=== PATIENT | male | born 1955 | race Caucasian/White ===

== ENCOUNTER 2021-01-03 16:35 | Outpatient (CLI) | payer OTHER | END 2021-01-03 16:36 | disposition home or self-care (01) | LOC: COV 16:35 | PROVIDERS: ATTEND Family Medicine | DX: Z20.822 Contact with and (suspected) exposure to COVID-19 (principal) ==

== ENCOUNTER 2023-11-28 08:48 | Outpatient (CLI) | payer OTHER | END 2023-11-28 08:49 | disposition home or self-care (01) | LOC: LAB 08:48 | PROVIDERS: ATTEND Urology | DX: E34.9 Endocrine disorder, unspecified (principal) | CPT/HCPCS: 36415; 84403 ==

== ENCOUNTER 2023-12-04 14:17 | Outpatient (CLI) | payer OTHER | END 2023-12-04 14:18 | disposition home or self-care (01) | LOC: LAB 14:17 | PROVIDERS: ATTEND Urology | DX: R97.20 Elevated prostate specific antigen [PSA] (principal); E34.9 Endocrine disorder, unspecified | CPT/HCPCS: 36415; 84153; 84403 ==

== ENCOUNTER 2025-02-24 07:26 | Inpatient (IN) ==
--- NOTE | 2025-02-24 07:42 | ED Physician Documentation ---
PD HPI ABD PAIN Stated complaint Stated Complaint: FEVER Chief complaint Chief Complaint: Fever History obtained from History obtained from: Patient and Family (spouse) History of Present Illness Timing - onset: How many days ago (onset 2 days ago of dysuria, frequency and fevers. General malaise. No URI symptoms. ) Timing - duration: Days (2) Timing - details: Abrupt onset, Still present and Waxing and waning Quality: Cramping (lower abd; some to right flank but had been some since kidney stone surgery a week ago. ) Location: RLQ Radiation: Right flank Associated symptoms: Fever, Nausea and Diarrhea (last night after taking augmentin earlier in day.); No Constipation Recently seen: Clinic (talked with Dr. Berry and had UA and culture sent yesterday, started on Augmentin. Pt states nausea/vomiting/diarrhea started overnight, presume from abx. No abd pain per se. Fevers higher today. ) and Surgery (Cystoscopy with kidney stone removal and stent placement on 02/17/2025 with successful removal of the stone.) Meds/Allgy Home Medications Ambulatory Orders Medication Instructions Recorded Confirmed amlodipine 10 mg tablet 10 mg PO ONCE 02/20/2402/17 losartan 100 mg tablet 100 mg PO DAILY 02/20/2408/07 tamsulosin 0.4 mg capsule 0.4 mg PO BID 02/20/2402/17 omeprazole magnesium 20 mg 20 mg PO DAILY PRN indigest ion 08/12/24 02/17/25 tablet,delayed release (Prilosec OTC) phenazopyridine 200 mg tablet 200 mg PO TID PRN bladde r spasms 6 02/04/25 02/17/25 doses #9 tabs sildenafil 100 mg tablet 100 mg PO DAILY PRN sexual a ctivity 02/04/25 02/13/25 hydrocodone 5 mg-acetaminophen 325 1 tab PO Q4H PRN Pa in #10 tabs 02/07/25 02/17/25 mg tablet cephalexin 500 mg capsule 500 mg PO ONCE #1 cap hydrocodone 5 mg-acetaminophen 325 1 tab PO Q4H PRN Pa in #10 tabs 02/17/25 mg tablet phenazopyridine 200 mg tablet 200 mg PO TID PRN pain 9 doses #9 02/17/25 tabs Augmentin 875 mg-potassium 1 tab PO Q12H 14 days #28 t abs 02/23/25 clavulanate 125 mg tablet Allergies Allergies Allergy/AdvReac Type Severity Reaction Status Date / Time erythromycin base Allergy Severe Hives Verified 02/24/25 07:44 PFSH Active Problems All Active Problems (Updated 02/24/25 @ 09:35 by Ronnell Briscoe DO) Sepsis (Acute) S/P ureteral stent placement (Acute) Fever (Acute) Acute pyelonephritis due to bacteria (Acute) Right ureteral stone (Acute) Renal colic (Acute) Personal history of gout (Acute) Pain in joints of right hand (Acute) Dyspnea on exertion (Acute) Elevated blood pressure reading in office without diagnosis of hypertension (Acute) Reactive airway disease (Acute) Cough (Acute) Fracture of right foot (Acute) Right foot pain (Acute) Rib pain on right side (Acute) Chronic maxillary sinusitis (Acute) Chronic pansinusitis (Acute) Social History Social History Smoking Status: Former smoker Do you feel safe in your home environment?: Yes History of physical, verbal, emotional, or financial abuse?: No Frequency: Occasional Substance Use: denies use Exam Exam Vital Signs: Vital Signs x48h Temp Pulse Resp BP Pulse Ox 02/24/25 08:22 85 151/71 H 98 02/24/25 07:44 85 152/71 H 96 02/24/25 07:40 99.0 C H 94 20 151/78 H 93 Constitutional normal general appearance, distress noted (mild) (mainly feeling weak and nausea. Not much in pain. ) and average body habitus HENAL oral mucous membranes abnormal (dry) and oropharynx normal Neck/C-Spine supple and no meningeal signs Lymph no lymphadenopathy noted Respiratory breath sounds equal bilaterally, normal respiratory effort and clear to auscultation bilaterally Cardiovascular normal heart rate noted, regular rhythm noted and no murmur Gastrointestinal abdomen soft to palpation, tender to palpation (mild) and (suprapubic) and nontender to percussion Genitourinary no CVA tenderness Psychiatry mental status grossly normal, oriented x3 and thought process normal Skin skin color normal and no rash Results Vitals Vitals: Vital Signs - 24 hr 02/24/25 07:40 02/24/25 07:44 02/24/25 08:22 Temperature 99.0 C H Temperature Source Oral Pulse Rate 94 85 85 Respiratory Rate 20 Blood Pressure 151/78 H 152/71 H 151/71 H O2 Saturation 93 96 98 O2 Source Room air Room air Room air Pain Intensity 4 Oxygen O2 Source Room air Labs Labs: Laboratory Tests 02/24/25 02/24/25 08:00 08:06 WBC 14.1 H RBC 4.21 L Hgb 13.4 L Hct 37.9 L MCV 90.0 MCH 31.8 H MCHC 35.4 RDW 15.2 H Plt Count 200 MPV 10.0 Neut # (Auto) 11.7 H Lymph # (Auto) 0.7 L [place] # (Auto) 1.4 H Eos # (Auto) 0.2 Baso # (Auto) 0.1 Absolute Nucleated RBC 0.00 Nucleated RBC % 0.0 Sodium 134 L Potassium 3.4 L Chloride 98 L Carbon Dioxide 27 Anion Gap 9.0 BUN 13 Creatinine 1.2 Estimated GFR (MDRD) 60 L Glucose 144 H Lactic Acid 0.8 Calcium 8.9 Magnesium 1.5 L Total Bilirubin 3.1 H AST 12 ALT 15 Alkaline Phosphatase 56 Total Protein 6.9 Albumin 4.0 Globulin 2.9 Albumin/Globulin Ratio 1.4 Rads (name of study) AP CT: Relevant Findings:: Final report received and EMP independent interpretation of test (stent in place. No noted abscess/free fluid. some inflammation around kidney right.) Interpretation: EXAM: [id number] CT/ABPEW ([id number]) PROCEDURE: CT Abdomen/Pelvis W INDICATIONS: recent stent/cystoscopy/stone, fever 2 days CONTRAST: Omni 300 100mL TECHNIQUE: After the administration of intravenous contrast, a CT scan of the abdomen and pelvis was performed. Images were recorded and evaluated at appropriate window settings. Reformats: coronal and sagittal. For radiation dose reduction, the following was used: automated exposure control, adjustment of mA and/or kV according to patient size. COMPARISON: CT abdomen pelvis 02/04/2025 FINDINGS: Image quality: Diagnostic. Lower chest: Unremarkable. Liver: No solid mass. Liver is enlarged measuring 22.9 cm with diffuse steatosis. Simple hepatic cyst is present measuring 2.7 cm. Gallbladder: Removed. Biliary tree: No intrahepatic or extrahepatic dilation, accounting for age. Spleen: No splenomegaly. Pancreas: No pancreatic ductal dilation. Adrenals: No adrenal nodule. Kidneys and ureters: No hydronephrosis. No renal cystic lesion which requires follow up. No solid mass. Right ureterovesicular stent. Punctate nonobstructing left renal calcification. Minimal appearance of perinephric stranding on the right as well as periureteral stranding. Previous right ureteral stent is no longer visualized. Stomach, bowel and peritoneum: No gastric or small bowel dilation. No abnormal wall thickening. No pathologic free fluid. Minimal hiatal hernia. Scattered colonic diverticula without inflammatory change. Lymph nodes: No central or retroperitoneal adenopathy. Vessels: No infrarenal aortic aneurysm. Patent portal vein. PELVIS Reproductive organs: Prostate gland is enlarged. Bladder: No abnormal wall thickening. Pelvic lymph nodes: No pelvic adenopathy by size criteria. Bones: No aggressive osseous abnormality. Other: No significant ventral or inguinal hernia. IMPRESSION: Mild right perinephric and periureteral stranding with ureterovesicular stent. Previous ureteral stone is no longer visualized. No perinephric fluid collection. Diverticulosis. Reviewed by: Suzy Nix MD on 02/24/2025 9:07 AM [facility] chest xray: Relevant Findings:: Final report received and EMP independent interpretation of test (no infiltrates) Interpretation: EXAM: [id number] XR/CXR1VW ([id number]) PROCEDURE: XR Chest 1V INDICATIONS: Sepsis TECHNIQUE: One view of the chest was acquired. COMPARISON: Chest x-ray 08/12/2024 FINDINGS: Surgical changes and devices: None. Lungs and pleura: No pleural effusions or pneumothorax. No consolidation. Mediastinum: Mediastinal contours appear normal. Heart size is prominent. Bones and chest wall: No suspicious bony lesions. Overlying soft tissues appear unremarkable. IMPRESSION: No acute cardiopulmonary process. Reviewed by: Suzy Nix MD on 02/24/2025 8:56 AM [facility] PD Medical Decision Making ED course Complexity details: reviewed results, considered differential (Patient is 1 week status post kidney stone removal by cystoscopy and stent placement. Has 2 days of fever and chills and dysuria. Dr. Berry states he had a urine sample sent for culture yesterday and started the patient on Augmentin. The patient has some NVD overnight, ? from abx.) and d/w patient Reviewed Lab Results: White count is elevated but his lactate is normal. We did do blood cultures and will see if those show any bacteremia. Concern would be high possibility of bacteremia given the high fevers and waves over the last 2 days. Otherwise he does not have URI symptoms but we will obtain a nasal PCR. Chest x-ray was done to evaluate for pneumonic process and appeared normal. No skin rash or sores. He has some vomiting and diarrhea overnight but more likely related to illness or side effect of the Augmentin from yesterday as that was not present prior to that and was not present at the initiation of the fevers. Most likely urinary tract infection. Dr. Berry is come to the ER to talk with the patient and is planning a stent exchange after initial antibiotics. The hospitalist is contacted as well. Discharge Plan Discharge Patient Disposition: [facility] DC/Xfer Condition: Stable Clinical Impression: Acute pyelonephritis due to bacteria, Fever, S/P ureteral stent placement Prescriptions: No Action amoxicillin-pot clavulanate 875-125 mg tablet 1 tab PO Q12H 14 Days Qty: 28 0RF sildenafil 100 mg tablet 100 mg PO DAILY PRN (Reason: sexual activity) phenazopyridine 200 mg tablet 200 mg PO TID PRN (Reason: bladder spasms) Qty: 9 0RF hydrocodone-acetaminophen 5-325 mg tablet 1 tab PO Q4H PRN (Reason: Pain) Qty: 10 0RF phenazopyridine 200 mg tablet 200 mg PO TID PRN (Reason: pain) Qty: 9 0RF cephalexin 500 mg capsule 500 mg PO ONCE Qty: 1 0RF Rx Instructions: take one cap 1-2 hours before cystoscopy and stent removal in the office omeprazole magnesium [Prilosec OTC] 20 mg tablet,delayed release (DR/EC) 20 mg PO DAILY PRN (Reason: indigestion) hydrocodone-acetaminophen 5-325 mg tablet 1 tab PO Q4H PRN (Reason: Pain) Qty: 10 0RF losartan 100 mg tablet 100 mg PO DAILY Patient Comments: take 1 tablet by mouth once daily tamsulosin 0.4 mg capsule 0.4 mg PO BID Patient Comments: TAKE 1 CAPSULE DAILY amlodipine 10 mg tablet 10 mg PO ONCE Patient Comments: TAKE 1 TABLET DAILY Print Language: Algerian
--- OUTSIDE RECORDS SUMMARY | 2025-02-24 07:55 | EXTERNAL MEDICAL SUMMARY RPT | Continuity of Care Document ---
Author Organization [facility] Address [address] [place] [id number] Phone Allergies and Intolerances date description facility reaction severity 2024-08-12 10:00 [id number]^erythromy dagoberto base^^erythromycin base^^allergy.id [facility] Hives (no severity) 2024-12-26 10:00 [id number]^erythromy dagoberto base^^erythromycin base^^allergy.id [facility] Hives (no severity) 2025-02-04 10:00 [id number]^erythromy dagoberto base^^erythromycin base^^allergy.id [employer] (no severity) 2025-02-13 10:00 [id number]^erythromy dagoberto base^^erythromycin base^^allergy.id [facility] Hives (no severity) 2025-02-24 10:00 [id number]^erythromy dagoberto base^^erythromycin base^^allergy.id [employer] (no severity) Problems date description facility 2024-12-26 10:41 Pain in joints of right hand [facility] 2024-12-26 10:41 Personal history of other diseases of the musculoskeletal system and connective tissue [facility] 2025-02-02 13:47 Encounter for screening for car diovascular disorders [facility] 2025-02-04 11:14 Unspecified renal colic [facility] 2025-02-04 11:39 Unspecified renal colic [facility] 2025-02-04 12:21 Unspecified renal colic [facility] 2025-02-04 12:22 Unspecified renal colic [facility] 2025-02-04 13:41 Unspecified renal colic [facility] 2025-02-06 07:43 Unspecified renal colic [facility] 2025-02-06 08:31 Unspecified renal colic [facility] 2025-02-07 08:12 [facility] col[facility]25-[facility]-07 08:12 Right lower quadrant pain [facility] 2025-02-07 08:12 [facility]ausea [facility] 2025-02-07 08:13 Unspecified renal colic [facility] 2025-02-07 10:17 Benign prostatic hyp erplasia with lower urinary tract symptoms [facility] 2025-02-07 10:17 Nocturia [facility] 2025-02-07 10:17 Elevated prostate specific anti gen [PSA] [facility] 2025-02-07 13:52 Unspecified renal colic [facility] 2025-02-08 23:39 Calculus of ureter [facility] 2025-02-10 08:22 Calculus of ureter [facility] 2025-02-13 11:40 Calculus of ureter [facility] 2025-02-17 06:40 Calculus of ureter [facility] 2025-02-17 07:31 Calculus of ureter [facility] 2025-02-17 09:37 Calculus of ureter [facility] 2025-02-17 09:37 Unspecified renal colic [facility] 2025-02-17 10:10 Calculus of ureter [facility] 2025-02-17 10:10 Unspecified renal colic [facility] 2025-02-18 10:11 Unspecified renal colic [facility] 2025-02-18 10:11 Right lower quadrant pain [facility] 2025-02-18 10:11 [facility]ausea [facility] 2025-02-18 10:58 Unspecified renal colic [facility] 2025-02-18 10:58 Right lower quadrant pain [facility] 2025-02-18 10:58 Nausea [facility] Results/Labs test date facility value unit notes Result panel 1 UROBILINOGEN,URINE 2025-02-04 [facility] 0.2 (NORMAL) e.u./dl (missing) SPECIFIC GRAVITY,URINE 2025-02-04 [facility] 1.020 (missing) (missing) WBC,URINE 2025-02-04 [facility] 6-10 /hpf (missing) PH,URINE 2025-02-04 [facility] 6.0 ph (missing) MUCUS,URINE 2025-02-04 [facility] Few Strands (missing) (missing) CLARITY,URINE 2025-02-04 [facility] HAZY (missing) (missing) URINE MICROSCOPIC INDICATED? 2025-02-04 [facility] INDICATED (missing) (missing) OCCULT BLOOD,URINE 2025-02-04 [facility] LARGE (missing) (missing) LEUKOCYTE ESTERASE, URINE 2025-02-04 [facility] NEGATIVE (missing) (missing) NITRITE,URINE 2025-02-04 [facility] NEGATIVE (missing) (missing) BILIRUBIN,URINE 2025-02-04 [facility] NEGATIVE (missing) Bilirubin can be influenced by color interference. Please correlate positive results with clinical presentation GLUCOSE, URINE (UA) 2025-02-04 [facility] NEGATIVE mg/dl (missing) KETONES,URINE (UA) 2025-02-04 [facility] NEGATIVE mg/dl (missing) UR CULTURE IF IND 2025-02-04 [facility] NOT INDICATED (missing) (missing) SQUAMOUS EPITHELIAL CELL,UR 2025-02-04 [facility] RARE Squamous (missing) (missing) BACTERIA,URINE 2025-02-04 [facility] Rare /hpf (missing) RBC,URINE 2025-02-04 [facility] TNTC /hpf (missing) PROTEIN,URINE 2025-02-04 [facility] TRACE mg/dl (missing) COLOR,URINE 2025-02-04 [facility] YELLOW (missing) URINE RANDOM Result panel 2 LIPASE 2025-02-04 09:13 [facility] < 10 u/l As of September 2022 testing method has changed, this may include reference ranges. NUCLEATED RED BLOOD CELLS AUTO 2025-02-04 09:13 [facility] 0.0 /100wbc (missing) BASOPHILS # (AUTO) 2025-02-04 09:13 [facility] 0.0 10 3/ul (missing) NRBC ABSOLUTE COUNT (AUTO) 2025-02-04 09:13 [facility] 0.00 x10 3/ul (missing) EOSINOPHILS # (AUTO) 2025-02-04 09:13 [facility] 0.2 10 3/ul (missing) MONOCYTES # (AUTO) 2025-02-04 09:13 [facility] 0.9 10 3/ul (missing) CREATININE 2025-02-04 09:13 [facility] 1.2 mg/dl As of September 2022 testing method has changed, this may include reference ranges. LYMPHOCYTES # (AUTO) 2025-02-04 09:13 [facility] 1.3 10 3/ul (missing) ALBUMIN/GLOBULIN RATIO 2025-02-04 09:13 [facility] 1.5 (missing) (missing) BILIRUBIN,TOTAL 2025-02-04 09:13 [facility] 1.5 mg /dl As of September 2022 testing method has changed, this may include reference ranges. MEAN PLATELET VOLUME 2025-02-04 09:13 [facility] 10.1 fl (missing) CHLORIDE 2025-02-04 09:13 [facility] 102 mmol/l As of September 2022 testing method has changed, this may include reference ranges. GLUCOSE 2025-02-04 09:13 [facility] 131 mg/dl As of September 2022 testing method has changed, this may include reference ranges. SODIUM 2025-02-04 09:13 [facility] 137 mmol/l (missing) HGB - HEMOGLOBIN 2025-02-04 09:13 [facility] 14.4 g /dl (missing) BUN - BLOOD UREA NITROGEN 2025-02-04 09:13 [facility] 15 mg/dl As of Sep testing method has changed, this may include reference ranges. RED CELL DISTRIBUTION WIDTH 2025-02-04 09:13 [facility] 15.2 % (missing) AST ASPARTATE AMINOTRANSFERASE 2025-02-04 09:13 [facility] 19 iu/l As of September 2022 testing method has changed, this may include reference ranges. GLOBULIN 2025-02-04 09:13 [facility] 2.8 g/dl (missing) PLT - PLATELET COUNT 2025-02-04 09:13 [facility] 213 10 3/ul (missing) ALT ALANINE AMINOTRANSFERASE 2025-02-04 09:13 [facility] 24 iu/l As of September 2022 testing method has changed, this may include reference ranges. CARBON DIOXIDE - CO2 2025-02-04 09:13 [facility] 27 mmol/l As of September 2022 testing method has changed, this may include reference ranges. MEAN CORPUSCULAR HEMOGLOBIN 2025-02-04 09:13 [facility] 30.9 pg (missing) MEAN CORPUSCULAR HGB CONC 2025-02-04 09:13 [facility] 34.3 g/dl (missing) POTASSIUM 2025-02-04 09:13 [facility] 4.0 mmol/l As of September 2022 testing method has changed, this may include reference ranges. ALBUMIN 2025-02-04 09:13 [facility] 4.3 g/dl As of September 2022 testing method has changed, this may include reference ranges. RED BLOOD COUNT 2025-02-04 09:13 [facility] 4.66 10 6/ul (missing) HCT - HEMATOCRIT 2025-02-04 09:13 [facility] 42.0 % (missing) NEUTROPHILS # (AUTO) 2025-02-04 09:13 [facility] 5.4 10 3/ul (missing) GFR - MDRD 2025-02-04 09:13 [facility] 60 (porter g) The IDMS-traceable MDRD Study Equation has been validated extensively in and populations between the ages of 18 and 70 with impaired kidney function (eGFR < 60 mL/min/1.73m2) and has shown good performance for patients with all common causes of kidney disease. Although this equation has not been validated for patients older than 70, an MDRD-derived eGFR may still be a useful tool for providers caring for patients older than 70. References: http://www.nkdep. nih.gov/lab-evalu ation/gfr/creatin ine-stand ardization, last updated May 2011. ALKALINE PHOSPHATASE 2025-02-04 09:13 [facility] 61 iu/l As of September 2022 testing method has changed, this may include reference ranges. TOTAL PROTEIN 2025-02-04 09:13 [facility] 7.1 g/dl As of September 2022 testing method has changed, this may include reference ranges. WHITE BLOOD COUNT 2025-02-04 09:13 [facility] 7.9 x10 3/ul (missing) ANION GAP 2025-02-04 09:13 [facility] 8.0 (missing ) (missing) CALCIUM 2025-02-04 09:13 [facility] 9.6 mg/dl As of September 2022 testing method has changed, this may include reference ranges. MEAN CORPUSCULAR VOLUME 2025-02-04 09:13 [facility] 90.1 fl (missing) Social History date description facility
[2025-02-24] MEDS: SODIUM CHLORIDE 0.9% 1,000 ML IV STA (08:07)
[2025-02-24] MEDS: ONDANSETRON 4 MG/2 ML VIAL IVP STA (08:08)
[2025-02-24 08:16] LABS: HCT - HEMATOCRIT 37.9 % (42.0-52.0); HGB - HEMOGLOBIN 13.4 g/dL (14.0-18.0); MEAN PLATELET VOLUME 10.0 fL (7.4-11.4); NRBC ABSOLUTE COUNT (AUTO) 0.00 x10^3/uL; NUCLEATED RED BLOOD CELLS AUTO 0.0 /100WBC; PLT - PLATELET COUNT 200 10^3/uL (130-450); RED CELL DISTRIBUTION WIDTH 15.2 % (12.0-15.0)
[2025-02-24 08:26] LABS: ALT ALANINE AMINOTRANSFERASE 15.0 IU/L (10-60); AST ASPARTATE AMINOTRANSFERASE 12.0 IU/L (10-42); BUN - BLOOD UREA NITROGEN 13.0 mg/dL (6-20); CARBON DIOXIDE - CO2 27.0 mmol/L (21-32); CREATININE 1.2 mg/dL (0.6-1.3); GFR - MDRD 60.0 (>89)
--- NOTE | 2025-02-24 09:00 | XRAY Report ---
PROCEDURE: XR Chest 1V INDICATIONS: Sepsis TECHNIQUE: One view of the chest was acquired. COMPARISON: Chest x-ray 08/12/2024 FINDINGS: Surgical changes and devices: None. Lungs and pleura: No pleural effusions or pneumothorax. No consolidation. Mediastinum: Mediastinal contours appear normal. Heart size is prominent. Bones and chest wall: No suspicious bony lesions. Overlying soft tissues appear unremarkable. IMPRESSION: No acute cardiopulmonary process. Reviewed by: Suzy Nix MD on 02/24/2025 8:56 AM [facility] Approved by: Suzy Nix MD on 02/24/2025 8:56 AM [facility] Station ID: [id number]
--- NOTE | 2025-02-24 09:10 | CT Report ---
PROCEDURE: CT Abdomen/Pelvis W INDICATIONS: recent stent/cystoscopy/stone, fever 2 days CONTRAST: Omni 300 100mL TECHNIQUE: After the administration of intravenous contrast, a CT scan of the abdomen and pelvis was performed. Images were recorded and evaluated at appropriate window settings. Reformats: coronal and sagittal. For radiation dose reduction, the following was used: automated exposure control, adjustment of mA and/or kV according to patient size. COMPARISON: CT abdomen pelvis 02/04/2025 FINDINGS: Image quality: Diagnostic. Lower chest: Unremarkable. Liver: No solid mass. Liver is enlarged measuring 22.9 cm with diffuse steatosis. Simple hepatic cyst is present measuring 2.7 cm. Gallbladder: Removed. Biliary tree: No intrahepatic or extrahepatic dilation, accounting for age. Spleen: No splenomegaly. Pancreas: No pancreatic ductal dilation. Adrenals: No adrenal nodule. Kidneys and ureters: No hydronephrosis. No renal cystic lesion which requires follow up. No solid mass. Right ureterovesicular stent. Punctate nonobstructing left renal calcification. Minimal appearance of perinephric stranding on the right as well as periureteral stranding. Previous right ureteral stent is no longer visualized. Stomach, bowel and peritoneum: No gastric or small bowel dilation. No abnormal wall thickening. No pathologic free fluid. Minimal hiatal hernia. Scattered colonic diverticula without inflammatory change. Lymph nodes: No central or retroperitoneal adenopathy. Vessels: No infrarenal aortic aneurysm. Patent portal vein. PELVIS Reproductive organs: Prostate gland is enlarged. Bladder: No abnormal wall thickening. Pelvic lymph nodes: No pelvic adenopathy by size criteria. Bones: No aggressive osseous abnormality. Other: No significant ventral or inguinal hernia. IMPRESSION: Mild right perinephric and periureteral stranding with ureterovesicular stent. Previous ureteral stone is no longer visualized. No perinephric fluid collection. Diverticulosis. Reviewed by: Suzy Nix MD on 02/24/2025 9:07 AM [facility] Approved by: Suzy Nix MD on 02/24/2025 9:07 AM PST Station ID: [id number]
--- NOTE | 2025-02-24 09:42 | HISTORY & PHYSICAL EXAMINATION ---
Chief Complaint Chief Complaint Chief Complaint: Fever History of Present Illness Admitted From Admitted From:: ED History Obtained From Records Reviewed: NONOshaun History obtained from: ED Provider, Urology Provider, Pt History of Present Illness HPI Comment/Other: This is a 69-year-old gentleman with a history of hypertension and recent right ureteral stone requiring stent placement. He had uteroscopy with lithotripsy performed 02/17. There was a small ureteral tear proximal to the stone prompting stent placement postprocedure. The patient with the procedure in his usual state of health. On the day prior to this admission, the patient began having fevers at home and called their urologist, Dr. Berry. His had her to give him a dose of Keflex prior to having a urine culture obtained. This was obtained 02/23. He was then started on Augmentin empirically. He is continued fevers despite starting on oral antibiotics. He has felt miserable for the past 2 days he tells me. He has been in bed since 02/22. He began having rigors early on 02/23, these resolved after he received Keflex and then remained resolved after he was received Augmentin. He continues to have high fevers without rigors up to 103 Fahrenheit. Given his ongoing fevers despite oral antibiotics in the community, he was advised to come to the ED. Here he has a leukocytosis up to 14,000. His blood pressure is high, and he tells me has not been taking his home antihypertensives for the last 2 days. He fevered in the ED. Urology was consulted, and they requested a CT scan of his abdomen. This shows appropriate stent positioning with some mild periureteral fat stranding but no clear fluid collections. No hydronephrosis. As above, the patient's been having fevers. Additionally is been having nausea and vomiting starting around 12/10 in the evening. He has been having dysuria that started around the same time. Having rigors before he got antibiotics as above. He denies flank pain or CVA tenderness. He states he has radiant pain with dysuria to his right flank with urination. Bedside discussion with the patient regarding his CODE STATUS. He states good understanding of the risks of cardiopulmonary resuscitation. He states that he is full code because "his would kill him if he wasn't". This is not an unreasonable position. His is his surrogate decision maker. She was not at bedside this morning. Meds/Allgy Home Medications Ambulatory Orders Medication Instructions Recorded Confirmed amlodipine 10 mg tablet 10 mg PO ONCE 02/20/2402/17 losartan 100 mg tablet 100 mg PO DAILY 02/20/2408/07 tamsulosin 0.4 mg capsule 0.4 mg PO BID 02/20/2402/17 omeprazole magnesium 20 mg 20 mg PO DAILY PRN indigest ion 08/12/24 02/17/25 tablet,delayed release (Prilosec OTC) phenazopyridine 200 mg tablet 200 mg PO TID PRN bladde r spasms 6 02/04/25 02/17/25 doses #9 tabs sildenafil 100 mg tablet 100 mg PO DAILY PRN sexual a ctivity 02/04/25 02/13/25 hydrocodone 5 mg-acetaminophen 325 1 tab PO Q4H PRN Pa in #10 tabs 02/07/25 02/17/25 mg tablet cephalexin 500 mg capsule 500 mg PO ONCE #1 cap hydrocodone 5 mg-acetaminophen 325 1 tab PO Q4H PRN Pa in #10 tabs 02/17/25 mg tablet phenazopyridine 200 mg tablet 200 mg PO TID PRN pain 9 doses #9 02/17/25 tabs Augmentin 875 mg-potassium 1 tab PO Q12H 14 days #28 t abs 02/23/25 clavulanate 125 mg tablet Allergies Allergies Allergy/AdvReac Type Severity Reaction Status Date / Time erythromycin base Allergy Severe Hives Verified 02/24/25 07:44 PFSH Active Problems All Active Problems (Updated 02/24/25 @ 13:38 by Ronnell Briscoe, ) BPH (benign prostatic hyperplasia) (Acute) Hypertension (Chronic) Sepsis (Acute) S/P ureteral stent placement (Acute) Fever (Acute) Acute pyelonephritis due to bacteria (Acute) Right ureteral stone (Acute) Renal colic (Acute) Personal history of gout (Acute) Pain in joints of right hand (Acute) Dyspnea on exertion (Acute) Elevated blood pressure reading in office without diagnosis of hypertension (Acute) Reactive airway disease (Acute) Cough (Acute) Fracture of right foot (Acute) Right foot pain (Acute) Rib pain on right side (Acute) Chronic maxillary sinusitis (Acute) Chronic pansinusitis (Acute) Medical History Medical History (Updated 02/24/25 @ 13:38 by Ronnell Briscoe DO) Sleep apnea treated with continuous positive airway pressure (CPAP) Asthma Surgical History Surgical History (Updated 02/24/25 @ 11:20 by Poncho Kenney CRNA) History of colonoscopy History of cystoscopy stent placement History of cholecystectomy History of hernia repair Social History Social History Smoking Status: Former smoker If you are a former smoker, when did you quit? (Date/Year): Dec 1987 Level: Assisted Do you feel safe in your home environment?: Yes History of physical, verbal, emotional, or financial abuse?: No Frequency: Occasional Substance Use: denies use Review of Systems Status of ROS: 10 or more systems reviewed and unremarkable except as noted in history and below Exam Exam Vital Signs: Vital Signs x48h Temp Pulse Pulse Resp BP BP Pulse Ox 02/24/25 13:25 37.5 C 81 18 133/83 H 99 02/24/25 13:20 72 16 142/79 H 98 02/24/25 13:15 37.3 C 87 16 129/76 97 02/24/25 12:26 37.1 C 72 24 124/77 94 02/24/25 11:11 37 C 02/24/25 10:18 88 147/78 H 98 02/24/25 10:09 38.1 C H 86 20 142/81 H 97 02/24/25 08:22 85 151/71 H 98 02/24/25 07:44 85 152/71 H 96 02/24/25 07:40 99.0 C H 94 20 151/78 H 93 GEN: Ill-appearing. Uncomfortable appearing. Febrile HEENT: NC/AT, normal appearance of external ears and nose. Hearing baseline. Cardiac: Regular rate and rhythm, no murmurs. Euvolemic on exam. Pulm: Lungs CTA bilaterally, no cough, no wheezes. No adventitial lung sounds. Normal effort on room air. Abdomen: Obese, soft, tender to deep palpation. Nontender to superficial palpation. No rebound tenderness or guarding. Negative CVA tenderness. Extremities: Moves all 4 extremities equally. Normal tone. Palpable distal pulses. Neuro: Face symmetric, CN II through XII intact grossly. No focal neurologic deficits. Psych: Mood euthymic congruent affect. Appropriate and cooperative. Conclusion/Plan Problem List (1) Sepsis: Plan: Patient presents with septic physiology in the setting of tachycardia, fever, elevated leukocytosis at 14K. His bilirubin is mildly elevated at 3.1. Likely source is pyelonephritis as below. Lactic acid 0.8. Normotensive. Will hold his prior antihypertensives in the setting of sepsis - Discussed with Dr. Berry and Dr. Hanks, will admit to med surg for further management. - Follow-up blood cultures - Follow-up urine cultures - Empiric treatment with ceftriaxone and vancomycin, no Pseudomonas risk factors - IV fluids will n.p.o. for procedure. - Consider extended course of treatment given rigors and possibly false negative blood cultures in the setting of delayed collection and early antibiotic start (2) S/P ureteral stent placement: (3) Acute pyelonephritis due to bacteria: Plan: Patient with recent lithotripsy for right ureteral stone with subsequent stent placed on 02/17. He began having fevers as above. He has been having dysuria that radiates to his right flank. Urinalysis reportedly collected in the community, but I do not have access to this record. CT scan with some periureteral fat stranding suspicious for a nidus of infection. No abscess. No hydronephrosis. No obstruction. Here, his urinalysis shows orange urine pH 5.5, low specific gravity with protein and nitrites unable to be obtained due to color interference. WBC clumping present. Rare bacteria. Culture was not reflexed. - Will add culture to collected urine - Follow-up blood cultures, NGTD - Started on ceftriaxone and vancomycin - Discussed with urology, they will replace stent, this aligns with IDSA guidelines (4) Hypertension: Plan: Patient with longstanding history of hypertension. He is on amlodipine 10 mg, losartan 100 mg daily. He has not been taking these in the days prior to his admission because he is felt too unwell. His blood pressure is high in the ED. - Continue holding home antihypertensives - Likely resume losartan 100mg 02/25 (5) BPH (benign prostatic hyperplasia): Plan: Patient has a history of BPH. He is on tamsulosin 0.4 mg p.o. twice daily prior to his hospitalization. - Bladder protocol - Resume tamsulosin 0.4 mg p.o. twice daily Plan By problem as above I spent a total of 81 minutes in the care of this patient today. This time was spent reviewing labs, vital signs, imaging, interviewing and examining the patient, and discussing plan of care with them and their other care providers. Data review as above. Discussed case with the ED provider as well as Dr. Berry. I decided to admit to inpatient on Med Surg. [id number] Lab Results 02/24/25 08:00 02/24/25 08:00
--- OUTSIDE RECORDS SUMMARY | 2025-02-24 09:59 | EXTERNAL MEDICAL SUMMARY RPT | Continuity of Care Document ---
Author Organization [facility] Address [address] [place] [id number] Phone Allergies and Intolerances date description facility reaction severity 2024-08-12 10:00 [id number]^erythromy [facility]^^erythromycin base^^allergy.id [facility] Hives (no severity) 2024-12-26 10:00 [id number]^erythromy [facility] base^^erythromycin base^^allergy.id [facility] Hives (no severity) 2025-02-04 10:00 [id number]^erythromy dagoberto base^^erythromycin base^^allergy.id [facility] (no severity) 2025-02-13 10:00 [id number]^erythromy [facility] base^^erythromycin base^^allergy.id [facility] Hives (no severity) 2025-02-24 10:00 [id number]^erythromy dag[facility]to base^^erythromycin base^^allergy.id [facility] (no severity) Problems date description facility 2024-12-26 10:41 Pain in joints of right hand [facility] 2024-12-26 10:41 Personal history of other diseases of the musculoskeletal system and connective tissue [facility] 2025-02-02 13:47 Encounter for screening for car diovascular disorders [facility] 2025-02-04 11:14 Unspecified renal colic [facility] 2025-02-04 11:39 Unspecified renal colic [facility] 2025-02-04 12:21 Unspecified renal colic [facility] 2025-02-04 12:22 Unspecified renal colic [facility] 2025-02-04 13:41 Unspecified renal colic [facility] 2025-02-06 07:43 Unspecified renal colic [facility] 2025-02-06 08:31 Unspecified renal colic [facility] 2025-02-07 08:12 [facility] 2025-02-07 08:12 Right lower quadrant pain [facility] 2025-02-07 08:12 Nausea [facility] 2025-02-07 08:13 Unspecified renal colic [facility] 2025-02-07 10:17 Benign prostatic hyp erplasia with lower urinary tract symptoms [facility] 2025-02-07 10:17 Nocturia [facility] 2025-02-07 10:17 Elevated prostate specific anti gen [PSA] [facility] 2025-02-07 13:52 Unspecified renal colic [facility] 2025-02-08 23:39 Calculus [facility] ureter [facility] 2025-02-10 08:22 Calculus of ureter [facility] 2025-02-13 11:40 Calculus of ureter [facility] 2025-02-17 06:40 Calculus of ureter [facility] 2025-02-17 07:31 Calculus of ureter [facility] 2025-02-17 09:37 Calculus of ureter [facility] 2025-02-17 09:37 Unspecified renal colic [facility] 2025-02-17 10:10 Calculus of ureter [facility] 2025-02-17 10:10 Unspecified renal colic [facility] 2025-02-18 10:11 Unspecified renal colic [facility] 2025-02-18 10:11 Right lower quadrant pain [facility] 2025-02-18 10:11 [facility]ausea [facility] 2025-02-18 10:58 Unspecified renal colic [facility] 2025-02-18 10:58 Right lower quadrant pain [facility] 2025-02-18 10:58 Nausea [facility] Results/Labs test date facility value unit notes Result panel 1 UROBILINOGEN,URINE 2025-02-04 [facility] 0.2 (NORMAL) e.u./dl (missing) SPECIFIC GRAVITY,URINE 2025-02-04 [facility] 1.020 (missing) (missing) WBC,URINE 2025-02-04 [facility] [...] 3/ul (missing) EOSINOPHILS # (AUTO) 2025-02-04 09:13 [facility] 0.2 10 3/ul (missing) MONOCYTES # (AUTO) 2025-02-04 09:13 [facility] 0.9 10 3/ul (missing) CREATININE 2025-02-04 09:13 [facility] 1.2 mg/dl As of September 2022 testing method has changed, this may include reference ranges. LYMPHOCYTES # (AUTO) 2025-02-04 09:13 [facility] 1.3 10 3/ul (missing) ALBUMIN/GLOBULIN RATIO 2025-02-04 09:13 [facility] 1.5 (missing) (missing) BILIRUBIN,TOTAL 2025-02-04 09:13 [facility] 1.5 mg /dl As of September 2022 testing method has changed, this may include reference ranges. MEAN PLATELET VOLUME 2025-02-04 09:13 [facility] 10.1 fl (missing) CHLORIDE 2025-02-04 09:13 [facility] 102 mmol/l As of September 2022 testing method has changed, this may include reference ranges. GLUCOSE 2025-02-04 09:13 [facility] 131 mg/dl As of September 2022 testing method has changed, this may include reference ranges. SODIUM 2025-02-04 09:13 [facility] 137 mmol/l (missing) HGB - HEMOGLOBIN 2025-02-04 09:13 [facility] 14.4 g /dl (missing) BUN - BLOOD UREA NITROGEN 2025-02-04 09:13 [facility] 15 mg/dl As of Sep testing method has changed, this may include reference ranges. RED CELL DISTRIBUTION WIDTH 2025-02-04 09:13 [facility] 15.2 % (missing) AST ASPARTATE AMINOTRANSFERASE 2025-02-04 09:13 [facility] 19 iu/l As of September 2022 testing method has changed, this may include reference ranges. GLOBULIN 2025-02-04 09:13 [facility] 2.8 g/dl (missing) PLT - PLATELET COUNT 2025-02-04 09:13 [facility] 213 10 3/ul (missing) ALT ALANINE AMINOTRANSFERASE 2025-02-04 09:13 [facility] 24 iu/l As of September 2022 testing method has changed, this may include reference ranges. CARBON DIOXIDE - CO2 2025-02-04 09:13 [facility] 27 mmol/l As of September 2022 testing method has changed, this may include reference ranges. MEAN CORPUSCULAR HEMOGLOBIN 2025-02-04 09:13 [facility] 30.9 pg (missing) MEAN CORPUSCULAR HGB CONC 2025-02-04 09:13 [facility] 34.3 g/dl (missing) POTASSIUM 2025-02-04 09:13 [facility] 4.0 mmol/l As of September 2022 testing method has changed, this may include reference ranges. ALBUMIN 2025-02-04 09:13 [facility] 4.3 g/dl As of September 2022 testing method has changed, this may include reference ranges. RED BLOOD COUNT 2025-02-04 09:13 [facility] 4.66 10 6/ul (missing) HCT - HEMATOCRIT 2025-02-04 09:13 [facility] 42.0 % (missing) NEUTROPHILS # (AUTO) 2025-02-04 09:13 [facility] 5.4 10 3/ul (missing) GFR - MDRD 2025-02-04 09:13 [facility] 60 (porter g) The IDMS-traceable MDRD Study [...] updated May 2011. ALKALINE PHOSPHATASE 2025-02-04 09:13 [facility] 61 iu/l As of September 2022 testing method has changed, this may include reference ranges. TOTAL PROTEIN 2025-02-04 09:13 [facility] 7.1 g/dl As of September 2022 testing method has changed, this may include reference ranges. WHITE BLOOD COUNT 2025-02-04 09:13 [facility] 7.9 x10 3/ul (missing) ANION GAP 2025-02-04 09:13 [facility] 8.0 (missing ) (missing) CALCIUM 2025-02-04 09:13 [facility] 9.6 mg/dl As of September 2022 testing method has changed, this may include reference ranges. MEAN CORPUSCULAR VOLUME 2025-02-04 09:13 [facility] 90.1 fl (missing) Result panel 3 NUCLEATED RED BLOOD CELLS AUTO 2025-02-24 08:00 [facility] 0.0 /100wbc (missing) NRBC ABSOLUTE COUNT (AUTO) 2025-02-24 08:00 [facility] 0.00 x10 3/ul (missing) BASOPHILS # (AUTO) 2025-02-24 08:00 [facility] 0.1 10 3/ul (missing) EOSINOPHILS # (AUTO) 2025-02-24 08:00 [facility] 0.2 10 3/ul (missing) LYMPHOCYTES # (AUTO) 2025-02-24 08:00 [facility] 0.7 10 3/ul (missing) CREATININE 2025-02-24 08:00 [facility] 1.2 mg/dl As of September 2022 testing method has changed, this may include reference ranges. ALBUMIN/GLOBULIN RATIO 2025-02-24 08:00 [facility] 1.4 (missing) (missing) MONOCYTES # (AUTO) 2025-02-24 08:00 [facility] 1.4 10 3/ul (missing) MAGNESIUM 2025-02-24 08:00 [facility] 1.5 mg/dl As of September 2022 testing method has changed, this may include reference ranges. MEAN PLATELET VOLUME 2025-02-24 08:00 [facility] 10.0 fl (missing) NEUTROPHILS # (AUTO) 2025-02-24 08:00 [facility] 11.7 10 3/ul (missing) AST ASPARTATE AMINOTRANSFERASE 2025-02-24 08:00 [facility] 12 iu/l As of September 2022 testing method has changed, this may include reference ranges. BUN - BLOOD UREA NITROGEN 2025-02-24 08:00 [facility] 13 mg/dl As of September 2022 testing method has changed, this may include reference ranges. HGB - HEMOGLOBIN 2025-02-24 08:00 [facility] 13.4 g/dl (missing) SODIUM 2025-02-24 08:00 [facility] 134 mmol/l (missing) WHITE BLOOD COUNT 2025-02-24 08:00 [facility] 14.1 x10 3/ul (missing) GLUCOSE 2025-02-24 08:00 [facility] 144 mg/dl As of September 2022 testing method has changed, this may include reference ranges. ALT ALANINE AMINOTRANSFERASE 2025-02-24 08:00 [facility] 15 iu/l As of September 2022 testing method has changed, this may include reference ranges. RED CELL DISTRIBUTION WIDTH 2025-02-24 08:00 [facility] 15.2 % (missing) GLOBULIN 2025-02-24 08:00 [facility] 2.9 g/dl (missing) PLT - PLATELET COUNT 2025-02-24 08:00 [facility] 200 10 3/ul (missing) CARBON DIOXIDE - CO2 2025-02-24 08:00 [facility] 27 mmol/l As of September 2022 testing method has changed, this may include reference ranges. BILIRUBIN,TOTAL 2025-02-24 08:00 [facility] 3.1 mg/dl As of September 2022 testing method has changed, this may include reference ranges. POTASSIUM 2025-02-24 08:00 [facility] 3.4 mmol/l As of September 2022 testing method has changed, this may include reference ranges. MEAN CORPUSCULAR HEMOGLOBIN 2025-02-24 08:00 [facility] 31.8 pg (missing) MEAN CORPUSCULAR HGB CONC 2025-02-24 08:00 [facility] 35.4 g/dl (missing) HCT - HEMATOCRIT 2025-02-24 08:00 [facility] 37.9 % (missing) ALBUMIN 2025-02-24 08:00 [facility] 4.0 g/dl As of September 2022 testing method has changed, this may include reference ranges. RED BLOOD COUNT 2025-02-24 08:00 [facility] 4.21 10 6/ul (missing) ALKALINE PHOSPHATASE 2025-02-24 08:00 [facility] 56 iu/l As of September 2022 testing method has changed, this may include reference ranges. TOTAL PROTEIN 2025-02-24 08:00 [facility] 6.9 g/dl As of September 2022 testing method has changed, this may include reference ranges. GFR - MDRD 2025-02-24 08:00 [facility] 60 (missing) The IDMS-traceable MDRD Study Equation has been [...] ation/gfr/creatin ine-stand ardization, last updated May 2011. CALCIUM 2025-02-24 08:00 [facility] 8.9 mg/dl As of September 2022 testing method has changed, this may include reference ranges. ANION GAP 2025-02-24 08:00 [facility] 9.0 (missing) (missing) MEAN CORPUSCULAR VOLUME 2025-02-24 08:00 [facility] 90.0 fl (missing) CHLORIDE 2025-02-24 08:00 [facility] 98 mmol/l As of September 2022 testing method has changed, this may include reference ranges. Result panel 4 LACTIC ACID, VENOUS 2025-02-24 08:06 [facility] 0.8 mmol/l Y As of September 2022 testing method has changed, this may include reference ranges. Social History date description facility
[2025-02-24] MEDS ORDERED: VANCOMYCIN INJ 1 GM, VANCOMYCIN INJ 250 MG in SODIUM CHLORIDE 0.9% 500 ML IV SCH (10:00)
--- NOTE | 2025-02-24 10:04 | HISTORY & PHYSICAL EXAMINATION ---
History of Present Illness Admitted From Admitted From:: er History of Present Illness HPI Comment/Other: Alexa a 69-year-old male well-known to me with a history of right ureteral stone requiring stent placement. He had a ureteroscopy and laser lithotripsy performed 1 week ago. A small ureteral tear was seen proximal to his stone location at the lateral right proximal ureter and so after the procedure a stent was left in place for a planned 3 weeks. His who works with me contacted me yesterday that he was having fevers to 102 Fahrenheit. A urine culture was obtained but she had already given him 1 pill of Keflex before this was taken. Urine culture still pending He was started on Augmentin empirically. Over the night he has done worse with fevers up to 103 Fahrenheit and now with more nausea and vomiting. He does have chills. He was sent to the ER this morning. Lab work notable for a white count of 14,000 Chest x-ray benign. CT scan with mild stranding with stent in appropriate position concerning for infection. No perinephric fluid collection He denies significant dysuria but does have some flank pain with voiding which is normal with stent in place Colonoscopy Questionnaire In the last 30 days have you experienced these symptoms? PFSH Active Problems All Active Problems (Updated 02/24/25 @ 10:02 by Casey Berry MD) Sepsis (Acute) S/P ureteral stent placement (Acute) Fever (Acute) Acute pyelonephritis due to bacteria (Acute) Right ureteral stone (Acute) Renal colic (Acute) Personal history of gout (Acute) Pain in joints of right hand (Acute) Dyspnea on exertion (Acute) Elevated blood pressure reading in office without diagnosis of hypertension (Acute) Reactive airway disease (Acute) Cough (Acute) Fracture of right foot (Acute) Right foot pain (Acute) Rib pain on right side (Acute) Chronic maxillary sinusitis (Acute) Chronic pansinusitis (Acute) Social History Social History Smoking Status: Former smoker Do you feel safe in your home environment?: Yes History of physical, verbal, emotional, or financial abuse?: No Frequency: Occasional Substance Use: denies use Meds/Allgy Home Medications Ambulatory Orders Medication Instructions Recorded Confirmed amlodipine 10 mg tablet 10 mg PO ONCE 02/20/2402/17 losartan 100 mg tablet 100 mg PO DAILY 02/20/2408/07 tamsulosin 0.4 mg capsule 0.4 mg PO BID 02/20/2402/17 omeprazole magnesium 20 mg 20 mg PO DAILY PRN indigest ion 08/12/24 02/17/25 tablet,delayed release (Prilosec OTC) phenazopyridine 200 mg tablet 200 mg PO TID PRN bladde r spasms 6 02/04/25 02/17/25 doses #9 tabs sildenafil 100 mg tablet 100 mg PO DAILY PRN sexual a ctivity 02/04/25 02/13/25 hydrocodone 5 mg-acetaminophen 325 1 tab PO Q4H PRN Pa in #10 tabs 02/07/25 02/17/25 mg tablet cephalexin 500 mg capsule 500 mg PO ONCE #1 cap hydrocodone 5 mg-acetaminophen 325 1 tab PO Q4H PRN Pa in #10 tabs 02/17/25 mg tablet phenazopyridine 200 mg tablet 200 mg PO TID PRN pain 9 doses #9 02/17/25 tabs Augmentin 875 mg-potassium 1 tab PO Q12H 14 days #28 t abs 02/23/25 clavulanate 125 mg tablet Allergies Allergies Allergy/AdvReac Type Severity Reaction Status Date / Time erythromycin base Allergy Severe Hives Verified 02/24/25 07:44 Results Lab Results Lab results reviewed: Yes 02/24/25 08:00 02/24/25 08:00 Other Lab Results: Lab Results x24hrs 02/24/25 02/24/25 Range/Units 08:06 08:00 WBC 14.1 H (4.8-10.8) x10^3/uL RBC 4.21 L (4.70-6.10) 10^6/uL Hgb 13.4 L (14.0-18.0) g/dL Hct 37.9 L (42.0-52.0) % MCV 90.0 (80.0-94.0) fL MCH 31.8 H (27.0-31.0) pg MCHC 35.4 (32.0-36.0) g/dL RDW 15.2 H (12.0-15.0) % Plt Count 200 (130-450) 10^3/uL MPV 10.0 (7.4-11.4) fL Neut # (Auto) 11.7 H (1.5-6.6) 10^3/uL Lymph # (Auto) 0.7 L (1.5-3.5) 10^3/uL Eddy # (Auto) 1.4 H (0.0-1.0) 10^3/uL Eos # (Auto) 0.2 (0.0-0.7) 10^3/uL Baso # (Auto) 0.1 (0.0-0.1) 10^3/uL Absolute Nucleated RBC 0.00 x10^3/uL Nucleated RBC % 0.0 /100WBC Sodium 134 L (135-145) mmol/L Potassium 3.4 L (3.5-4.5) mmol/L Chloride 98 L (101-111) mmol/L Carbon Dioxide 27 (21-32) mmol/L Anion Gap 9.0 (6-13) BUN 13 (6-20) mg/dL Creatinine 1.2 (0.6-1.3) mg/dL Estimated GFR (MDRD) 60 L (>89) Glucose 144 H (74-104) mg/dL Lactic Acid 0.8 (0.5-2.2) mmol/L Calcium 8.9 (8.5-10.3) mg/dL Magnesium 1.5 L (1.7-2.3) mg/dL Total Bilirubin 3.1 H (0.2-1.0) mg/dL AST 12 (10-42) IU/L ALT 15 (10-60) IU/L Alkaline Phosphatase 56 (42-121) IU/L Total Protein 6.9 (6.4-8.9) g/dL Albumin 4.0 (3.2-5.5) g/dL Globulin 2.9 (2.1-4.2) g/dL Albumin/Globulin Ratio 1.4 (1.0-2.2) Diagnostic Imaging Results Diagnostic Imaging Results: positive Read independently Exam Exam Vital Signs: Vital Signs x48h Temp Pulse Resp BP Pulse Ox 02/24/25 08:22 85 151/71 H 98 02/24/25 07:44 85 152/71 H 96 02/24/25 07:40 99.0 C H 94 20 151/78 H 93 Patient is diaphoretic RRR CTA b/l Impression/Plan Problem List (1) Fever: Plan: Fever and nausea and vomiting associated with likely pyelonephritis versus bacteremia. All cultures pending. Now on empiric ceftriaxone. Has right ureteral stent in place. Given ureteral injury seen during ureteroscopy I do want the stent in for longer than 1 week. I am going out of town tomorrow for 2 weeks and so to that end I do recommend a stent exchange today in order to allow for ureteral healing and to remove possible biofilm Cystoscopy and right ureteral stent exchange. The patient and I had a discussion regarding the risks, benefits, alternatives. Specific risks of further infection, bleeding, injury to adjacent structures, need for additional procedures, failure of therapy were discussed. We discussed the small risks of anesthesia Patient states understanding and consents to the above plan He has been marked and consented Qualifiers: Fever type: post-procedural Qualified Code(s): R50.82 - Postprocedural fever
--- OUTSIDE RECORDS SUMMARY | 2025-02-24 10:04 | EXTERNAL MEDICAL SUMMARY RPT | Continuity of Care Document ---
Author Organization [facility] Address [address] [place] [id number] Phone Allergies and Intolerances date description facility reaction severity 2024-08-12 10:00 [id number]^erythromy dagoberto base^^erythromycin base^^allergy.id [facility] | [facility] Hives (no severity) 2024-12-26 10:00 [id number]^erythromy dagoberto base^^erythromycin base^^allergy.id [facility] | [facility] Hives (no severity) 2025-02-04 10:00 [id number]^erythromy dagoberto base^^erythromycin base^^allergy.id [facility] (no severity) 2025-02-13 10:00 [id number]^erythromy dagoberto base^^erythromycin base^^allergy.id [facility] | [facility] Hives (no severity) 2025-02-24 10:00 [id number]^erythromy dagoberto base^^erythromycin base^^allergy.id [facility] (no severity) Problems date description facility 2024-12-26 10:41 Pain in joints of right hand [facility] 2024-12-26 10:41 Personal history of other diseases of the musculoskeletal system and connective tissue [facility] 2025-02-02 13:47 Encounter for screening for car diovascular disorders [facility] | [facility] 2025-02-04 11:14 Unspecified renal colic [facility] | [facility] 2025-02-04 11:39 Unspecified renal colic [facility] 2025-02-04 12:21 Unspecified renal colic [facility] 2025-02-04 12:22 Unspecified renal colic [facility] 2025-02-04 13:41 Unspecified renal colic [facility] | [facility] 2025-02-06 07:43 Unspecified renal colic [facility] | [facility] 2025-02-06 08:31 Unspecified renal colic [facility] 2025-02-07 08:12 [facility] 2025-02-07 08:12 Right lower quadrant pain [facility] 2025-02-07 08:12 [facility]a [facility] 2025-02-07 08:13 Unspecified renal colic [facility] 2025-02-07 10:17 Benign prostatic hyp erplasia with lower urinary tract symptoms [facility] 2025-02-07 10:17 [facility]cturia [facility] 2025-02-07 10:17 Elevated prostate specific anti gen [PSA] [facility] 2025-02-07 13:52 Unspecified renal colic [facility] 2025-02-08 23:39 Calculus [facility]ter [facility] 2025-02-10 08:22 Calculus of ureter [facility] 2025-02-13 11:40 Calculus [facility]ter [facility] 2025-02-17 06:40 Calculus of ureter [facility] 2025-02-17 07:31 Calculus of ureter [facility] 2025-02-17 09:37 Calculus of ureter [facility] 2025-02-17 09:37 Unspecified renal colic [facility] 2025-02-17 10:10 Calculus of ureter [facility] 2025-02-17 10:10 Unspecified renal colic [facility] 2025-02-18 10:11 Unspecified renal colic [facility] 2025-02-18 10:11 Right lower quadrant pain [facility] 2025-02-18 10:11 [facility]ausea [facility] 2025-02-18 10:58 Unspecified renal colic [facility] 2025-02-18 10:58 Right lower quadrant pain [facility] 2025-02-18 10:58 Nausea [facility] Results/Labs test date facility value unit notes Result panel 1 UROBILINOGEN,URINE 2025-02-04 [facility] 0.2 (NORMAL) e.u./dl (missing) SPECIFIC GRAVITY,URINE 2025-02-04 [facility] 1.020 (missing) (missing) WBC,URINE 2025-02-04 [facility] [...] 3/ul (missing) EOSINOPHILS # (AUTO) 2025-02-04 09:13 [facility] 0.2 10 3/ul (missing) MONOCYTES # (AUTO) 2025-02-04 09:13 [facility] 0.9 10 3/ul (missing) CREATININE 2025-02-04 09:13 [facility] 1.2 mg/dl As of September 2022 testing method has changed, this may include reference ranges. LYMPHOCYTES # (AUTO) 2025-02-04 09:13 [facility] 1.3 10 3/ul (missing) ALBUMIN/GLOBULIN RATIO 2025-02-04 09:13 [facility] 1.5 (missing) (missing) BILIRUBIN,TOTAL 2025-02-04 09:13 [facility] 1.5 mg /dl As of September 2022 testing method has changed, this may include reference ranges. MEAN PLATELET VOLUME 2025-02-04 09:13 [facility] 10.1 fl (missing) CHLORIDE 2025-02-04 09:13 [facility] 102 mmol/l As of September 2022 testing method has changed, this may include reference ranges. GLUCOSE 2025-02-04 09:13 [facility] 131 mg/dl As of September 2022 testing method has changed, this may include reference ranges. SODIUM 2025-02-04 09:13 [facility] 137 mmol/l (missing) HGB - HEMOGLOBIN 2025-02-04 09:13 [facility] 14.4 g /dl (missing) BUN - BLOOD UREA NITROGEN 2025-02-04 09:13 [facility] 15 mg/dl As of Sep testing method has changed, this may include reference ranges. RED CELL DISTRIBUTION WIDTH 2025-02-04 09:13 [facility] 15.2 % (missing) AST ASPARTATE AMINOTRANSFERASE 2025-02-04 09:13 [facility] 19 iu/l As of September 2022 testing method has changed, this may include reference ranges. GLOBULIN 2025-02-04 09:13 [facility] 2.8 g/dl (missing) PLT - PLATELET COUNT 2025-02-04 09:13 [facility] 213 10 3/ul (missing) ALT ALANINE AMINOTRANSFERASE 2025-02-04 09:13 [facility] 24 iu/l As of September 2022 testing method has changed, this may include reference ranges. CARBON DIOXIDE - CO2 2025-02-04 09:13 [facility] 27 mmol/l As of September 2022 testing method has changed, this may include reference ranges. MEAN CORPUSCULAR HEMOGLOBIN 2025-02-04 09:13 [facility] 30.9 pg (missing) MEAN CORPUSCULAR HGB CONC 2025-02-04 09:13 [facility] 34.3 g/dl (missing) POTASSIUM 2025-02-04 09:13 [facility] 4.0 mmol/l As of September 2022 testing method has changed, this may include reference ranges. ALBUMIN 2025-02-04 09:13 [facility] 4.3 g/dl As of September 2022 testing method has changed, this may include reference ranges. RED BLOOD COUNT 2025-02-04 09:13 [facility] 4.66 10 6/ul (missing) HCT - HEMATOCRIT 2025-02-04 09:13 [facility] 42.0 % (missing) NEUTROPHILS # (AUTO) 2025-02-04 09:13 [facility] 5.4 10 3/ul (missing) GFR - MDRD 2025-02-04 09:13 [facility] 60 (porter g) The IDMS-traceable MDRD Study [...] updated May 2011. ALKALINE PHOSPHATASE 2025-02-04 09:13 [facility] 61 iu/l As of September 2022 testing method has changed, this may include reference ranges. TOTAL PROTEIN 2025-02-04 09:13 [facility] 7.1 g/dl As of September 2022 testing method has changed, this may include reference ranges. WHITE BLOOD COUNT 2025-02-04 09:13 [facility] 7.9 x10 3/ul (missing) ANION GAP 2025-02-04 09:13 [facility] 8.0 (missing ) (missing) CALCIUM 2025-02-04 09:13 [facility] 9.6 mg/dl As of September 2022 testing method has changed, this may include reference ranges. MEAN CORPUSCULAR VOLUME 2025-02-04 09:13 [facility] 90.1 fl (missing) Result panel 3 NUCLEATED RED BLOOD CELLS AUTO 2025-02-24 08:00 [facility] 0.0 /100wbc (missing) NRBC ABSOLUTE COUNT (AUTO) 2025-02-24 08:00 [facility] 0.00 x10 3/ul (missing) BASOPHILS # (AUTO) 2025-02-24 08:00 [facility] 0.1 10 3/ul (missing) EOSINOPHILS # (AUTO) 2025-02-24 08:00 [facility] 0.2 10 3/ul (missing) LYMPHOCYTES # (AUTO) 2025-02-24 08:00 [facility] 0.7 10 3/ul (missing) CREATININE 2025-02-24 08:00 [facility] 1.2 mg/dl As of September 2022 testing method has changed, this may include reference ranges. ALBUMIN/GLOBULIN RATIO 2025-02-24 08:00 [facility] 1.4 (missing) (missing) MONOCYTES # (AUTO) 2025-02-24 08:00 [facility] 1.4 10 3/ul (missing) MAGNESIUM 2025-02-24 08:00 [facility] 1.5 mg/dl As of September 2022 testing method has changed, this may include reference ranges. MEAN PLATELET VOLUME 2025-02-24 08:00 [facility] 10.0 fl (missing) NEUTROPHILS # (AUTO) 2025-02-24 08:00 [facility] 11.7 10 3/ul (missing) AST ASPARTATE AMINOTRANSFERASE 2025-02-24 08:00 [facility] 12 iu/l As of September 2022 testing method has changed, this may include reference ranges. BUN - BLOOD UREA NITROGEN 2025-02-24 08:00 [facility] 13 mg/dl As of September 2022 testing method has changed, this may include reference ranges. HGB - HEMOGLOBIN 2025-02-24 08:00 [facility] 13.4 g/dl (missing) SODIUM 2025-02-24 08:00 [facility] 134 mmol/l (missing) WHITE BLOOD COUNT 2025-02-24 08:00 [facility] 14.1 x10 3/ul (missing) GLUCOSE 2025-02-24 08:00 [facility] 144 mg/dl As of September 2022 testing method has changed, this may include reference ranges. ALT ALANINE AMINOTRANSFERASE 2025-02-24 08:00 [facility] 15 iu/l As of September 2022 testing method has changed, this may include reference ranges. RED CELL DISTRIBUTION WIDTH 2025-02-24 08:00 [facility] 15.2 % (missing) GLOBULIN 2025-02-24 08:00 [facility] 2.9 g/dl (missing) PLT - PLATELET COUNT 2025-02-24 08:00 [facility] 200 10 3/ul (missing) CARBON DIOXIDE - CO2 2025-02-24 08:00 [facility] 27 mmol/l As of September 2022 testing method has changed, this may include reference ranges. BILIRUBIN,TOTAL 2025-02-24 08:00 [facility] 3.1 mg/dl As of September 2022 testing method has changed, this may include reference ranges. POTASSIUM 2025-02-24 08:00 [facility] 3.4 mmol/l As of September 2022 testing method has changed, this may include reference ranges. MEAN CORPUSCULAR HEMOGLOBIN 2025-02-24 08:00 [facility] 31.8 pg (missing) MEAN CORPUSCULAR HGB CONC 2025-02-24 08:00 [facility] 35.4 g/dl (missing) HCT - HEMATOCRIT 2025-02-24 08:00 [facility] 37.9 % (missing) ALBUMIN 2025-02-24 08:00 [facility] 4.0 g/dl As of September 2022 testing method has changed, this may include reference ranges. RED BLOOD COUNT 2025-02-24 08:00 [facility] 4.21 10 6/ul (missing) ALKALINE PHOSPHATASE 2025-02-24 08:00 [facility] 56 iu/l As of September 2022 testing method has changed, this may include reference ranges. TOTAL PROTEIN 2025-02-24 08:00 [facility] 6.9 g/dl As of September 2022 testing method has changed, this may include reference ranges. GFR - MDRD 2025-02-24 08:00 [facility] 60 (missing) The IDMS-traceable MDRD Study Equation [...] last updated May 2011. CALCIUM 2025-02-24 08:00 [facility] 8.9 mg/dl As of September 2022 testing method has changed, this may include reference ranges. ANION GAP 2025-02-24 08:00 [facility] 9.0 (missing) (missing) MEAN CORPUSCULAR VOLUME 2025-02-24 08:00 [facility] 90.0 fl (missing) CHLORIDE 2025-02-24 08:00 [facility] 98 mmol/l As of September 2022 testing method has changed, this may include reference ranges. Result panel 4 LACTIC ACID, VENOUS 2025-02-24 08:06 [facility] 0.8 mmol/l Y As of September 2022 testing method has changed, this may include reference ranges. Social History date description facility"
[2025-02-24] MEDS ORDERED: oxyCODONE 5 MG TABLET PO PRN (10:07)
[2025-02-24] MEDS ORDERED: SODIUM CHLORIDE FLUSH 0.9% 10 ML SYRINGE IVP PRN (10:07)
[2025-02-24] MEDS ORDERED: ONDANSETRON ODT 4 MG TABLET TL PRN (10:07)
[2025-02-24] MEDS ORDERED: LACTATED RINGERS 1,000 ML IV PRN (10:07)
[2025-02-24] MEDS ORDERED: ACETAMINOPHEN 325 MG TABLET PO PRN (10:07)
[2025-02-24 10:15] LABS: B. PARAPERTUSSIS- RESP PCR PAN NOT DETECTED; B. PERTUSSIS- RESP PCR PANEL NOT DETECTED; C. PNEUMONIAE- RESP PCR PANEL NOT DETECTED; CORONAVIRUS 229E-RESP PCR NOT DETECTED; CORONAVIRUS HKU1-RESP PCR NOT DETECTED; CORONAVIRUS NL63-RESP PCR NOT DETECTED; CORONAVIRUS OC43-RESP PCR NOT DETECTED; HUMAN METAPNEUMOVIRUS NOT DETECTED; INFLUENZA A- RESP PCR PANEL NOT DETECTED; INFLUENZA B - RESP PCR PANEL NOT DETECTED; M. PNEUMONIAE- RESP PCR PANEL NOT DETECTED; PARAINFLUENZA VIRUS 1 NOT DETECTED; PARAINFLUENZA VIRUS 2 NOT DETECTED; PARAINFLUENZA VIRUS 4 NOT DETECTED; RHINOVIRUS/ENTEROVIRUS NOT DETECTED; RSV- RESP PCR PANEL NOT DETECTED; SARS-CoV-2 -RESP PCR PANEL NOT DETECTED
[2025-02-24] MEDS: ACETAMINOPHEN 1,000 MG/100 ML BAG IV PRN (10:28)
[2025-02-24] MEDS: VANCOMYCIN INJ 1 GM, VANCOMYCIN INJ 250 MG in SODIUM CHLORIDE 0.9% 250 ML IV SCH (10:43)
[2025-02-24] MEDS: LACTATED RINGERS 1,000 ML IV SCH (11:05)
--- NOTE | 2025-02-24 11:21 | ANESTHESIA PROCEDURE NOTE ---
Pre-Anesthesia VS, & Labs Diagnosis Surgical Diagnosis:: acute pyelonephritis Procedure Procedure: cystoscopy, R ureteral stent exchange Vitals Vital Signs: Temp Pulse Resp BP Pulse Ox 37 C 88 20 147/78 H 98 02/24/25 11:11 02/24/25 10:18 02/24/25 10:09 02/24/25 10:18 02/24/25 10:18 NPO NPO: >8 hours Lab Results Current Lab Results: Laboratory Tests 02/24/25 08:06: Lactic Acid 0.8 02/24/25 08:00: WBC 14.1 H, RBC 4.21 L, Hgb 13.4 L, Hct 37.9 L, MCV 90.0, MCH 31.8 H, MCHC 35.4, RDW 15.2 H, Plt Count 200, MPV 10.0, Neut # (Auto) 11.7 H, L ymph # (Auto) 0.7 L, [place] # (Auto) 1.4 H, Eos # (Auto) 0.2, Baso # (Auto) 0.1, Absolute Nucleated RBC 0.00, Nucleated RBC % 0.0, Sodium 134 L, Potassium 3.4 L, Chloride 98 L, Carbon Dioxide 27, Anion Gap 9.0, BUN 13, Creatinine 1.2, E stimated GFR (MDRD) 60 L, Glucose 144 H, Calcium 8.9, Magnesium 1.5 L, Total Bilirubin 3.1 H, AST 12, ALT 15, Alkaline Phosphatase 56, Total Protein 6.9, Albumin 4.0, Globulin 2.9, Albumin/Globulin Ratio 1.4 Lab results reviewed: Yes 02/24/25 08:00 02/24/25 08:00 Meds/Allgy Home Medications Ambulatory Orders Medication Instructions Recorded Confirmed amlodipine 10 mg tablet 10 mg PO ONCE 02/20/2402/17 losartan 100 mg tablet 100 mg PO DAILY 02/20/2408/07 tamsulosin 0.4 mg capsule 0.4 mg PO BID 02/20/2402/17 omeprazole magnesium 20 mg 20 mg PO DAILY PRN indigest ion 08/12/24 02/17/25 tablet,delayed release (Prilosec OTC) phenazopyridine 200 mg tablet 200 mg PO TID PRN bladde r spasms 6 02/04/25 02/17/25 doses #9 tabs sildenafil 100 mg tablet 100 mg PO DAILY PRN sexual a ctivity 02/04/25 02/13/25 hydrocodone 5 mg-acetaminophen 325 1 tab PO Q4H PRN Pa in #10 tabs 02/07/25 02/17/25 mg tablet cephalexin 500 mg capsule 500 mg PO ONCE #1 cap hydrocodone 5 mg-acetaminophen 325 1 tab PO Q4H PRN Pa in #10 tabs 02/17/25 mg tablet phenazopyridine 200 mg tablet 200 mg PO TID PRN pain 9 doses #9 02/17/25 tabs Augmentin 875 mg-potassium 1 tab PO Q12H 14 days #28 t abs 02/23/25 clavulanate 125 mg tablet Allergies Allergies Allergy/AdvReac Type Severity Reaction Status Date / Time erythromycin base Allergy Severe Hives Verified 02/24/25 07:44 PFSH Active Problems All Active Problems (Updated 02/24/25 @ 11:20 by Poncho Kenney CRNA) Sepsis (Acute) S/P ureteral stent placement (Acute) Fever (Acute) Acute pyelonephritis due to bacteria (Acute) Right ureteral stone (Acute) Renal colic (Acute) Personal history of gout (Acute) Pain in joints of right hand (Acute) Dyspnea on exertion (Acute) Elevated blood pressure reading in office without diagnosis of hypertension (Acute) Reactive airway disease (Acute) Cough (Acute) Fracture of right foot (Acute) Right foot pain (Acute) Rib pain on right side (Acute) Chronic maxillary sinusitis (Acute) Chronic pansinusitis (Acute) Medical History Medical History (Updated 02/24/25 @ 11:20 by Poncho Kenney CRNA) Sleep apnea treated with continuous positive airway pressure (CPAP) Asthma Surgical History Surgical History (Updated 02/24/25 @ 11:20 by Poncho Kenney CRNA) History of colonoscopy History of cystoscopy stent placement History of cholecystectomy History of hernia repair Social History Social History Smoking Status: Former smoker If you are a former smoker, when did you quit? (Date/Year): Dec 1987 Level: Assisted Do you feel safe in your home environment?: Yes History of physical, verbal, emotional, or financial abuse?: No Frequency: Occasional Substance Use: denies use Anesthesia Exam (Expanded) Exam General: Alert, Oriented x3 and Cooperative Dental: WNL Mouth Openin Fingerbreadth Neck Mobility: Normal Mallampati classification: II Thyromental Distance: 4-6 cm Respiratory: Lungs clear, Normal breath sounds and No respiratory distress (appears SOB, denies, states this is normal lung function, 98% RA) Cardiovascular: Regular rate Neurological: Normal speech Mental/Cognitive Status: Alert/Oriented X3 and Normal for patient Cognitive Status: Within normal limits Exam Exam Vital Signs: Vital Signs x48h Temp Pulse Pulse Resp BP BP Pulse Ox 02/24/25 11:11 37 C 02/24/25 10:18 88 147/78 H 98 02/24/25 10:09 38.1 C H 86 20 142/81 H 97 02/24/25 08:22 85 151/71 H 98 02/24/25 07:44 85 152/71 H 96 02/24/25 07:40 99.0 C H 94 20 151/78 H 93 Plan Problem List (1) Fever: Plan: Fever and nausea and vomiting associated with likely pyelonephritis versus bacteremia. All cultures pending. Now on empiric ceftriaxone. Has right ureteral stent in place. Given ureteral injury seen during ureteroscopy I do want the stent in for longer than 1 week. I am going out of town tomorrow for 2 weeks and so to that end I do recommend a stent exchange today in order to allow for ureteral healing and to remove possible biofilm Cystoscopy and right ureteral stent exchange. The patient and I had a discussion regarding the risks, benefits, alternatives. Specific risks of further infection, bleeding, injury to adjacent structures, need for additional procedures, failure of therapy were discussed. We discussed the small risks of anesthesia Patient states understanding and consents to the above plan He has been marked and consented Qualifiers: Fever type: post-procedural Qualified Code(s): R50.82 - Postprocedural fever Plan Anesthesia Type: General Consent for Procedure(s) Verified and Reviewed: Yes Code Status: Attempt Resuscitation ASA Classification ASA classification: 3-Severe systemic disease Is this case an emergency?: Yes
[2025-02-24 12:09] LABS: GLUCOSE, URINE (UA) Negative (NEGATIVE); KETONES,URINE (UA) Negative (NEGATIVE); OCCULT BLOOD,URINE Negative (NEGATIVE)
[2025-02-24] MEDS ORDERED: PROPOFOL 200 MG/20 ML VIAL IVP ONE (12:20)
[2025-02-24] MEDS ORDERED: MIDAZOLAM 2 MG/2 ML VIAL ONE (12:20)
[2025-02-24] MEDS ORDERED: fentaNYL 100 MCG/2 ML VIAL ONE (12:21)
[2025-02-24] MEDS ORDERED: LIDOCAINE 2% URO-JET 5 ML SYRINGE UR ONE ×2 (12:23→12:44)
[2025-02-24] MEDS ORDERED: iohexoL-240 20 ML VIAL IVP ONE (12:23)
[2025-02-24 12:24] LABS: SQUAMOUS EPITHELIAL CELL,UR RARE Squamous (<= Few); WBC CLUMPS,URINE PRESENT
[2025-02-24] MEDS ORDERED: ONDANSETRON 4 MG/2 ML VIAL ONE (13:05)
--- NOTE | 2025-02-24 13:09 | OPERATIVE REPORT ---
Operative Report General Admit Date: 02/24/25 Procedure Data: Operation Date: 02/24/25 12:00 Proposed Procedures p Cystoscopy with Ureteral Stent Exchange(Right) - Casey Berry MD Anesthesia Type General Case Staff Anesthesia Provider: Thania Porras Case Times Procedure Start: 02/24/25 12:59 Procedure End: 02/24/25 13:06 Time out: 02/24/25 12:58 Pre-Op Diagnosis: sepsis and ureteral stent Post Op Diagnosis: sepsis and ureteral stent Procedure Note Estimated Blood Loss (ml): 0 Findings: stent exchanged Complications: none Other Other Information/Narrative: After informed consent was obtained the patient was brought to the OR and laid in the supine position. The patient was anesthetized per anesthesia protocols and prepped and draped in usual sterile fashion in the dorsolithotomy position. A formal timeout was performed reconfirming the patient and procedure and laterality. 22 Malay cystoscope was advanced easily per urethra into the bladder. His urine showed some Pyridium orange color but otherwise was unremarkable. His stent was unremarkable. A sensor wire was placed next to the stent up into the kidney. His old stent was then grasped and removed. A new 6 Malay 28 cm stent was placed with good curling noted in the kidney and good curling noted in the bladder. The bladder was emptied and Uro-Jet was placed This concluded the procedure and the patient tolerated the procedure well. He will return to the medical service.
[2025-02-24] MEDS ORDERED: HYDROmorphone 0.5 MG/0.5 ML SYRINGE IVP PRN ×2 (13:32)
[2025-02-24] MEDS ORDERED: fentaNYL 100 MCG/2 ML VIAL IVP PRN ×2 (13:32)
[2025-02-24] MEDS ORDERED: MORPHINE 2 MG/ML CARPUJECT IVP PRN ×2 (13:32)
[2025-02-24] MEDS ORDERED: NALOXONE 0.4 MG/ML VIAL IVP PRN ×2 (13:32)
[2025-02-24] MEDS ORDERED: ATROPINE ABBOJECT 1 MG/10 ML SYRINGE IVP PRN (13:32)
[2025-02-24] MEDS ORDERED: METOCLOPRAMIDE 10 MG/2 ML VIAL IVP PRN ×2 (13:32)
[2025-02-24] MEDS ORDERED: ONDANSETRON 4 MG/2 ML VIAL IVP PRN ×2 (13:32)
[2025-02-24] MEDS ORDERED: ePHEDrine 50 MG/ML VIAL IVP PRN ×2 (13:32)
[2025-02-24] MEDS ORDERED: LACTATED RINGERS 1,000 ML IV SCH ×2 (14:00)
--- NOTE | 2025-02-24 14:58 | ANESTHESIA POST OP EVALUATION ---
Anesthesia Post Eval Post Anesthesia Eval Vitals: Last Vital Signs Temp 37.4 C 02/24/25 14:25 Pulse 80 02/24/25 14:25 Resp 18 02/24/25 14:25 BP 112/74 02/24/25 14:25 Pulse Ox 96 02/24/25 14:25 CV Function Including HR & BP: Stable Pain Control: Satisfactory Nausea & Vomiting: Negative Mental Status: Baseline Respiratory Status: Airway Patent Hydration Status: Satisfactory Anesthesia Complications: None
--- NOTE | 2025-02-24 15:55 | PHARMACY PROGRESS NOTE ---
Vancomycin Therapy Monitoring Patient Information Vancomycin Pt Height (inches): 74 Vancomycin Patient Weight (kg): 128 Vanco Rx Serum Creatinine (mg/dL): 1.2 Vancomycin Therapy BUN (mg/dL): 13 Vancomycin Therapy Calculated Creatinine Cl (ml/min): 109 Concurrent Antibiotics: CEFTRIAXONE Vancomycin Therapy Goals Treatment Indication: SEPSIS Vancomycin Target Range: Vancomycin AUC Target Range 400-600 mcg*h/ml Assessment of Current Therapy Current Vancomycin Maintenance Regimen (if applicable): 1.25G Q12H Vancomycin Current Regimen: Subtherapeutic Levels Estimated Cmax (Peak, mcg/ml): 26.6 Estimated Cmin (Trough, mcg/ml): 17.3 Estimated AUC (mcg*hr/ml): 520 Plan: Pharmacy recommendation: Continue current regimen Vancomycin Level Recommendation: Obtain Trough Only Areas for additonal monitoring Areas for additional monitoring: Therapy de-escalation based on culture results and Acute Kidney Injury
[2025-02-24] MEDS: ONDANSETRON 4 MG/2 ML VIAL IVP PRN (16:04)
[2025-02-24] MEDS: ACETAMINOPHEN 325 MG TABLET PO PRN (16:04)
[2025-02-24] MEDS: SODIUM CHLORIDE FLUSH 0.9% 10 ML SYRINGE IVP SCH (16:05)
--- NOTE | 2025-02-24 16:52 | PHARMACY PROGRESS NOTE ---
Best Possible Medication History Admit Date and Time: 02/24/25 0931 Home Medications Medication Instructions Recorded Confirmed Type amlodipine 10 mg tablet 10 mg PO DAILY 02/20/2402/13 History omeprazole magnesium 20 mg 20 mg PO DAILY PRN indigest ion 08/12/24 02/24/25 History tablet,delayed release (Prilosec OTC) sildenafil 100 mg tablet 100 mg PO DAILY PRN sexual a ctivity 02/04/25 02/24/25 History Augmentin 875 mg-potassium 1 tab PO Q12H 14 days #28 t abs 02/23/25 02/24/25 Rx clavulanate 125 mg tablet Processed by: Pharmacy Medications reviewed in ED?: Yes Medication History completed: Yes Patient Interview: Pt unable to participate Secondary Source(s): Insurance records [facility] Statement: As the person ultimately responsible for medication therapy, providers are able to order a medication from an existing home medication list in [facility] via the "Reconcile Routine" prior to Confirmation of that medication by technical support engineer. Such practice is discouraged except when the physician, in their clinical judgment, deems that a medical need exists for a medication without regard to previous use.
[2025-02-24] MEDS: ALBUTEROL NEB 2.5 MG/3 ML INH PRN (16:54)
[2025-02-24] MEDS: PANTOPRAZOLE 40 MG TABLET PO SCH (17:17)
[2025-02-25 05:23] LABS: HCT - HEMATOCRIT 35.6 % (42.0-52.0); HGB - HEMOGLOBIN 11.7 g/dL (14.0-18.0); MEAN PLATELET VOLUME 10.1 fL (7.4-11.4); NRBC ABSOLUTE COUNT (AUTO) 0.00 x10^3/uL; NUCLEATED RED BLOOD CELLS AUTO 0.0 /100WBC; PLT - PLATELET COUNT 167 10^3/uL (130-450); RED CELL DISTRIBUTION WIDTH 15.4 % (12.0-15.0)
[2025-02-25 05:40] LABS: BUN - BLOOD UREA NITROGEN 12.0 mg/dL (6-20); CARBON DIOXIDE - CO2 27.0 mmol/L (21-32); CREATININE 1.1 mg/dL (0.6-1.3); GFR - MDRD 67.0 (>89)
--- NOTE | 2025-02-25 07:51 | PROVIDER PROGRESS NOTE ---
Subjective Prog Note Date Prog Note Date: 02/25/25 Prog Note Time: 07:48 Subjective Subjective: No acute events overnight. He is remained afebrile. Stent was replaced uneventfully yesterday. He has been eating and drinking. His vital signs are normalizing. His white count is down to 11.1. Otherwise K3.4 this morning. Normal renal function. Magnesium up to 1.8. Patient says he feels well. He last reports having fever-like symptoms late last evening. No documented fever. Tmax 37.9 yesterday afternoon. Last received Tylenol at midnight. White count continues to downtrend on Ancef. Denies any nausea vomiting, chest pain, dyspnea, abdominal pain. Denies dysuria. This resolved after his procedure yesterday. He is having some decreased urinary stream, confirmed he actually does take tamsulosin 0.4 mg 2 tabs daily. This had not been continued here. Current Medications Current Medications Current Medications: Current Medications Generic Name Dose Route Start Last Admin Trade Name Freq PRN Reason Stop Dose Admin Acetaminophen 650 mg 02/24/25 15:51 02/25/25 00:13 Acetaminophen 325 Mg Tablet PO 650 mg Q4HR PRN Administration Pain or Fever > 38C (100.4F) Albuterol 2.5 mg 02/24/25 16:46 02/24/25 16:54 Albuterol Neb 2.5 Mg/3 Ml INH 2.5 mg RTQ4H PRN Administration Wheezing Vancomycin HCl 1 gm/ 250 mls @ 78.947 mls/hr 02/24/25 10:00 02/25/25 01:10 Vancomycin HCl 250 mg/ Sodium IV Infused Chloride Q12H KELLEN Infusion Ceftriaxone Sodium 2 gm/ 100 mls @ 200 mls/hr 02/25/25 09:00 Sodium Chloride IV DAILY KELLEN Ondansetron HCl 4 mg 02/24/25 10:07 02/24/25 16:04 Ondansetron 4 Mg/2 Ml Vial IVP 4 mg Q6HR PRN Administration Nausea / Vomiting Ondansetron HCl 4 mg 02/24/25 10:07 Ondansetron Odt 4 Mg Tablet TL Q6HR PRN Nausea / Vomiting Ondansetron HCl 4 mg 02/24/25 13:32 Ondansetron 4 Mg/2 Ml Vial IVP 02/25/25 13:32 ONCE PRN N/V ([facility]) Oxycodone HCl 5 mg 02/24/25 10:07 Oxycodone 5 Mg Tablet PO Q4HR PRN Pain 5 to 7 Oxycodone HCl 10 mg 02/24/25 10:07 Oxycodone 5 Mg Tablet PO Q4HR PRN Pain 8 to 10 Pantoprazole Sodium 40 mg 02/24/25 17:30 02/25/25 06:35 Pantoprazole 40 Mg Tablet PO 40 mg QDAC KELLEN Administration Sodium Chloride 10 ml 02/24/25 10:07 Sodium Chloride Flush 0.9% 10 Ml Syringe IVP PRN PRN NEEDED PER PROVIDER ORDERS Sodium Chloride 10 ml 02/24/25 17:00 02/25/25 00:00 Sodium Chloride Flush 0.9% 10 Ml Syringe IVP Not Given 0100,0900,1700 [facility] Objective Vital Signs/Intake & Output Reviewed Vital Signs: Yes Vital Signs: Vital Signs x48h Temp Pulse Resp BP BP Pulse Ox 02/25/25 05:06 36.8 C 77 20 147/91 H 94 02/25/25 00:08 37.5 C 67 24 158/71 H 95 Intake & Output: Intake & Output 02/22/25 02/23/25 02/24/25 02/25/25 23:59 23:59 23:59 23:59 Intake Total 2353 / 2353 950 / 950 Output Total 300 / 300 450 / 450 Balance 2052 / 2052 500 / 500 Weight (kg) 128 kg Objective Comments/Other: GEN: No acute distress. Sitting up eating. HEENT: NC/AT, normal appearance of external ears and nose. Hearing baseline. Cardiac: Regular rate and rhythm, no murmurs. Generally euvolemic on exam. Pulm: Lungs CTA bilaterally, no cough, no wheezes. No adventitial lung sounds. Normal effort on room air. Abdomen: Obese, soft, nontender palpation. No rebound tenderness or guarding. Extremities: Moves all 4 extremities equally. Normal tone. Neuro: Face symmetric, CN II through XII intact grossly. No focal neurologic deficits. Psych: Mood euthymic with congruent affect. Judgment intact. Lab Results 02/25/25 05:06 02/25/25 05:06 Other Labs: Lab Results x24hrs 02/25/25 02/24/25 02/24/25 Range/Units 05:06 11:55 08:30 WBC 11.1 H (4.8-10.8) x10^3/uL RBC 3.84 L (4.70-6.10) 10^6/uL Hgb 11.7 L (14.0-18.0) g/dL Hct 35.6 L (42.0-52.0) % MCV 92.7 (80.0-94.0) fL MCH 30.5 (27.0-31.0) pg MCHC 32.9 (32.0-36.0) g/dL RDW 15.4 H (12.0-15.0) % Plt Count 167 (130-450) 10^3/uL MPV 10.1 (7.4-11.4) fL Neut # (Auto) 8.0 H (1.5-6.6) 10^3/uL Lymph # (Auto) 1.1 L (1.5-3.5) 10^3/uL [place] # (Auto) 1.3 H (0.0-1.0) 10^3/uL Eos # (Auto) 0.5 (0.0-0.7) 10^3/uL Baso # (Auto) 0.1 (0.0-0.1) 10^3/uL Absolute Nucleated RBC 0.00 x10^3/uL Nucleated RBC % 0.0 /100WBC Sodium 135 (135-145) mmol/L Potassium 3.3 L (3.5-4.5) mmol/L Chloride 100 L (101-111) mmol/L Carbon Dioxide 27 (21-32) mmol/L Anion Gap 8.0 (6-13) BUN 12 (6-20) mg/dL Creatinine 1.1 (0.6-1.3) mg/dL Estimated GFR (MDRD) 67 L (>89) Glucose 115 H (74-104) mg/dL Lactic Acid (0.5-2.2) mmol/L Calcium 8.8 (8.5-10.3) mg/dL Magnesium 1.8 (1.7-2.3) mg/dL Total Bilirubin (0.2-1.0) mg/dL AST (10-42) IU/L ALT (10-60) IU/L Alkaline Phosphatase (42-121) IU/L Total Protein (6.4-8.9) g/dL Albumin (3.2-5.5) g/dL Globulin (2.1-4.2) g/dL Albumin/Globulin Ratio (1.0-2.2) Urine Color [place] Urine Clarity Clear (CLEAR) Urine pH 5.5 (5.0-7.5) PH Ur Specific [place] <=1.005 (1.002-1.030) Urine Protein (NEGATIVE) mg/dL Urine Glucose (UA) Negative (NEGATIVE) mg/dL Urine Ketones Negative (NEGATIVE) mg/dL Urine Occult Blood Negative (NEGATIVE) Urine Nitrite (NEGATIVE) Urine Bilirubin Negative (NEGATIVE) Urine Urobilinogen 1 (NORMAL) (NORMAL) E.U./dL Ur Leukocyte Esterase Negative (NEGATIVE) Urine RBC None Seen (0-5) /HPF Urine WBC 6-10 H (0-3) /HPF Urine WBC Clumps PRESENT Ur Squamous Epith Cells RARE Squamous (<= Few) Urine Bacteria Rare (None Seen) /HPF Urine Culture Comments NOT INDICATED Nasal Adenovirus (PCR) NOT DETECTED Nasal B. parapertussis DNA (PCR) NOT DETECTED Nasal Coronavir 229E PCR NOT DETECTED Nasal Coronavir HKU1 PCR NOT DETECTED Nasal Coronavir NL63 PCR NOT DETECTED Nasal Coronavir OC43 PCR NOT DETECTED Nasal Enterovir/Rhinovir PCR NOT DETECTED Nasal Influenza B PCR NOT DETECTED Nasal Influenza A PCR NOT DETECTED Nasal Parainfluen 1 PCR NOT DETECTED Nasal Parainfluen 2 PCR NOT DETECTED Nasal Parainfluen 3 PCR NOT DETECTED Nasal Parainfluen 4 PCR NOT DETECTED Nasal RSV (PCR) NOT DETECTED Nasal B.pertussis DNA PCR NOT DETECTED Nasal C.pneumoniae (PCR) NOT DETECTED Kyree Human Metapneumo PCR NOT DETECTED Nasal M.pneumoniae (PCR) NOT DETECTED Nasal SARS-CoV-2 (PCR) NOT DETECTED 02/24/25 02/24/25 Range/Units 08:06 08:00 WBC 14.1 H (4.8-10.8) x10^3/uL RBC 4.21 L (4.70-6.10) 10^6/uL Hgb 13.4 L (14.0-18.0) g/dL Hct 37.9 L (42.0-52.0) % MCV 90.0 (80.0-94.0) fL MCH 31.8 H (27.0-31.0) pg MCHC 35.4 (32.0-36.0) g/dL RDW 15.2 H (12.0-15.0) % Plt Count 200 (130-450) 10^3/uL MPV 10.0 (7.4-11.4) fL Neut # (Auto) 11.7 H (1.5-6.6) 10^3/uL Lymph # (Auto) 0.7 L (1.5-3.5) 10^3/uL [place] # (Auto) 1.4 H (0.0-1.0) 10^3/uL Eos # (Auto) 0.2 (0.0-0.7) 10^3/uL Baso # (Auto) 0.1 (0.0-0.1) 10^3/uL Absolute Nucleated RBC 0.00 x10^3/uL Nucleated RBC % 0.0 /100WBC Sodium 134 L (135-145) mmol/L Potassium 3.4 L (3.5-4.5) mmol/L Chloride 98 L (101-111) mmol/L Carbon Dioxide 27 (21-32) mmol/L Anion Gap 9.0 (6-13) BUN 13 (6-20) mg/dL Creatinine 1.2 (0.6-1.3) mg/dL Estimated GFR (MDRD) 60 L (>89) Glucose 144 H (74-104) mg/dL Lactic Acid 0.8 (0.5-2.2) mmol/L Calcium 8.9 (8.5-10.3) mg/dL Magnesium 1.5 L (1.7-2.3) mg/dL Total Bilirubin 3.1 H (0.2-1.0) mg/dL AST 12 (10-42) IU/L ALT 15 (10-60) IU/L Alkaline Phosphatase 56 (42-121) IU/L Total Protein 6.9 (6.4-8.9) g/dL Albumin 4.0 (3.2-5.5) g/dL Globulin 2.9 (2.1-4.2) g/dL Albumin/Globulin Ratio 1.4 (1.0-2.2) Urine Color Urine Clarity (CLEAR) Urine pH (5.0-7.5) PH Ur Specific [place] (1.002-1.030) Urine Protein (NEGATIVE) mg/dL Urine Glucose (UA) (NEGATIVE) mg/dL Urine Ketones (NEGATIVE) mg/dL Urine Occult Blood (NEGATIVE) Urine Nitrite (NEGATIVE) Urine Bilirubin (NEGATIVE) Urine Urobilinogen (NORMAL) E.U./dL Ur Leukocyte Esterase (NEGATIVE) Urine RBC (0-5) /HPF Urine WBC (0-3) /HPF Urine WBC Clumps Ur Squamous Epith Cells (<= Few) Urine Bacteria (None Seen) /HPF Urine Culture Comments Nasal Adenovirus (PCR) Nasal B. parapertussis DNA (PCR) Nasal Coronavir 229E PCR Nasal Coronavir HKU1 PCR Nasal Coronavir NL63 PCR Nasal Coronavir OC43 PCR Nasal Enterovir/Rhinovir PCR Nasal Influenza B PCR Nasal Influenza A PCR Nasal Parainfluen 1 PCR Nasal Parainfluen 2 PCR Nasal Parainfluen 3 PCR Nasal Parainfluen 4 PCR Nasal RSV (PCR) Nasal B.pertussis DNA PCR Nasal C.pneumoniae (PCR) Kyree Human Metapneumo PCR Nasal M.pneumoniae (PCR) Nasal SARS-CoV-2 (PCR) Assessment/Plan Problem List (1) Sepsis: Impression: Improved. Patient no longer has sepsis physiology. No longer tachycardic. No fevers. His white blood cell count is improved to 11. Recall the patient initially presented with septic physiology in setting of tachycardia, fever, leukocytosis of 14K. Bilirubin mildly elevated at 3.1. No other signs of endorgan dysfunction. Likely source was pyelonephritis. His lactate was normal. He remained normotensive. - Pyelonephritis management as below - Follow-up blood cultures, no results yet - Follow-up urine cultures, no results yet (2) S/P ureteral stent placement: (3) Acute pyelonephritis due to bacteria: Impression: Stable, improved. He is no longer having any dysuria. White count downtrending. Consideration for other infectious sources, no cough or dyspnea. No meningismus. No wounds or joint pains. No abdominal pain. Patient presented following recent lithotripsy on 02/17. Began having fevers on around 12/10. Dysuria that radiates to his right flank pain which is not unexpected following stent placement. Urinalysis collected in Dr. Berry's office, but not yet reported in EMR CT scan on admission so some periureteral fat stranding. No abscess. No hydronephrosis or obstruction. Stent was replaced by Dr. Berry 02/24. Reportedly looked "pristine". - Follow-up cultures as above - Started on ceftriaxone vancomycin empirically - Likely discharge with MRSA coverage (doxycycline versus Bactrim) (4) Hypertension: Impression: Patient has been hypertensive in the setting with holding his home antihypertensives He has a longstanding history of hypertension. On amlodipine 10 mg losartan 100 mg daily prior to his hospitalization. Confirmed this with patient. - Resume losartan 100 mg daily today - Resume amlodipine 10 mg daily tomorrow (5) BPH (benign prostatic hyperplasia): Impression: Patient has had difficulty with urinating in the setting of his tamsulosin not being resumed. 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 Not on his sure scripts. He says he sometimes takes it 2 at the same time but mostly takes it twice daily. Tolerates this well. - Continue bladder protocol - Tamsulosin 0.4 mg twice daily I spent a total of 40 minutes in the care of this patient today. This time was spent reviewing labs, vital signs, imaging, interviewing and examining the patient, and discussing plan of care with them and their other care providers. Treating acute illness with systemic symptoms. Prescription management as above. [id number]
[2025-02-25] MEDS: cefTRIAXone 2 GM in SODIUM CHLORIDE 0.9% MINIBAG 100 ML IV SCH (08:39)
[2025-02-25] MEDS: TAMSULOSIN 0.4 MG CAPSULE PO SCH (08:40)
[2025-02-25] MEDS: LOSARTAN 50 MG TABLET PO SCH (08:54)
[2025-02-25] MEDS: POTASSIUM CHLORIDE 20 MEQ/15 ML UDC PO ONE (08:54)
[2025-02-25] MEDS: oxyCODONE 5 MG TABLET PO PRN (16:43)
[2025-02-25] MEDS: SACCHAROMYCES BOULARDII 250 MG CAPSULE PO SCH (17:32)
[2025-02-26 05:44] LABS: HCT - HEMATOCRIT 33.0 % (42.0-52.0); HGB - HEMOGLOBIN 11.0 g/dL (14.0-18.0); MEAN PLATELET VOLUME 10.4 fL (7.4-11.4); NRBC ABSOLUTE COUNT (AUTO) 0.00 x10^3/uL; NUCLEATED RED BLOOD CELLS AUTO 0.0 /100WBC; PLT - PLATELET COUNT 191 10^3/uL (130-450); RED CELL DISTRIBUTION WIDTH 14.9 % (12.0-15.0)
[2025-02-26 06:02] LABS: BUN - BLOOD UREA NITROGEN 13.0 mg/dL (6-20); CARBON DIOXIDE - CO2 27.0 mmol/L (21-32); CREATININE 1.0 mg/dL (0.6-1.3); GFR - MDRD 75.0 (>89)
--- NOTE | 2025-02-26 07:16 | Discharge Summary ---
Discharge Summary Admit Date: 02/24/25 Discharge Date: 02/26/25 Discharging Provider: Ronnell Briscoe Primary Care Provider: Gian Schreiber Code Status: Attempt Resuscitation Discharge Facility Name: Home DIAGNOSES Discharge Diagnoses with Status of Each Condition: ## Sepsis, resolved Sepsis secondary to urinary tract infection. Pyelonephritis as below. WBC is now normalized. ## Acute pyelonephritis, improved In the setting of recent ureteral stent placement. Failed outpatient management with antibiotics with persistent fevers. Ureteral stent was exchanged here in the hospital on 02/24. He was treated with IV ceftriaxone and vancomycin empirically. Consideration was made to discharge on MRSA coverage but then his urine came back on day of discharge with Pseudomonas (less than 10,000 CFU) which was pansensitive. Transition to ciprofloxacin at discharge. Given rapid improvement, only treating for an additional 5 days. - Sent 5 days Cipro 250 mg twice daily - Has follow-up with Dr. Berry 03/10 - Return precautions discussed ## Hypertension Patient was hypertensive during this hospitalization in setting of not getting his home medications. Was resumed on amlodipine on day of discharge. Can resume on losartan following. He was going to hold losartan when considering starting on Bactrim, but when going on Cipro, reasonable to resume losartan at home. ## BPH Stable, was continued on his tamsulosin 0.4 mg which he takes twice daily at home. HPI History of Present Illness: This is a 69-year-old gentleman with a history of hypertension and recent right ureteral stone requiring stent placement. He had uteroscopy with lithotripsy performed 02/17. There was a small ureteral tear proximal to the stone prompting stent placement postprocedure. The patient with the procedure in his usual state of health. On the day prior to this admission, the patient began having fevers at home and called their urologist, Dr. Berry. His had her to give him a dose of Keflex prior to having a urine culture obtained. This was obtained 02/23. He was then started on Augmentin empirically. He is continued fevers despite starting on oral antibiotics. He has felt miserable for the past 2 days he tells me. He has been in bed since 02/22. He began having rigors early on 02/23, these resolved after he received Keflex and then remained resolved after he was received Augmentin. He continues to have high fevers without rigors up to 103 Fahrenheit. Given his ongoing fevers despite oral antibiotics in the community, he was advised to come to the ED. Here he has a leukocytosis up to 14,000. His blood pressure is high, and he tells me has not been taking his home antihypertensives for the last 2 days. He fevered in the ED. Urology was consulted, and they requested a CT scan of his abdomen. This shows appropriate stent positioning with some mild periureteral fat stranding but no clear fluid collections. No hydronephrosis. As above, the patient's been having fevers. Additionally is been having nausea and vomiting starting around 12/10 in the evening. He has been having dysuria that started around the same time. Having rigors before he got antibiotics as above. He denies flank pain or CVA tenderness. He states he has radiant pain with dysuria to his right flank with urination. Bedside discussion with the patient regarding his CODE STATUS. He states good understanding of the risks of cardiopulmonary resuscitation. He states that he is full code because "his would kill him if he wasn't". This is not an unreasonable position. His is his surrogate decision maker. She was not at bedside this morning. CONSULTS | PROCEDURES Consultations: Urology Procedures: Ureteral stent exchange 02/24 CTAP 02/24 CXR 02/24 HOSPITAL COURSE Hospital Course: Patient came in after 2 days of antibiotics, first Keflex then Augmentin with ongoing fevers in the community. He was treated with IV antibiotics here with MRSA coverage. He improved subjectively and his white count normalized. His vital signs normalized on day of admission. He had a stent exchange with urology on day of admission. There was not any concerning findings during the cystoscopy procedure. Intention was to transition him to oral antibiotics with MRSA coverage, consideration for doxycycline or Bactrim. On day of discharge, his urine cultures returned positive with Pseudomonas which was sensitive to fluoroquinolones. He has been transition to ciprofloxacin at discharge which he will take for 5 days. He has urology follow-up scheduled for 03/10. Given his rapid improvement, this limited course was thought to be appropriate. His blood cultures will continue be monitored for 5 days, no growth after 48 hours. He is also been started on a probiotic, he was having diarrhea after Augmentin, but this is resolved on IV antibiotics. Continue probiotic until at least 3 days after he completes his antibiotic course. ALLERGIES Allergies Allergy/AdvReac Type Severity Reaction Status Date / Time erythromycin base Allergy Severe Hives Verified 02/24/25 07:44 MEDICATIONS Ambulatory Orders Medication Instructions Recorded Confirmed amlodipine 10 mg tablet 10 mg PO DAILY 02/20/2402/13 omeprazole magnesium 20 mg 20 mg PO DAILY PRN indigest ion 08/12/24 02/24/25 tablet,delayed release (Prilosec OTC) sildenafil 100 mg tablet 100 mg PO DAILY PRN sexual a ctivity 02/04/25 02/24/25 Saccharomyces boulardii 250 mg 500 mg (2 x 250 mg) PO BIDWM 17 02/26/25 capsule days #68 caps ciprofloxacin HCl 500 mg tablet 500 mg PO Q12H #10 tab s 02/26/25 (Cipro) tamsulosin 0.4 mg capsule 0.4 mg PO BID #0 caps PHYSICAL EXAM AT DISCHARGE Vital Signs: Vital Signs x48h Temp Pulse Resp BP Pulse Ox 02/26/25 09:51 36.7 C 71 20 151/89 H 96 02/26/25 07:48 36.6 C 73 20 118/81 97 LABS 02/26/25 05:18 02/26/25 05:18 DIAGNOSTIC IMAGING Diagnostic Imaging Results: Final report reviewed and Read independently Diagnostic Imaging Results Comments: CT A/P 02/24: Mild right perinephric and periureteral stranding with ureterovesicular stent. Previous ureteral stone is no longer visualized. No perinephric fluid collection. Diverticulosis. CXR 02/24: No acute cardiopulmonary process. SEPSIS Current Stage of Sepsis: Resolved Possible source of Sepsis: Genitourinary Sepsis Criteria: Recorded Temperature greater than 38.3C or Less than 36C, Recorded Heart Rate greater than 90 bpm, WBC count greater than 10% bands and WBC count greater than 12,000 or less than 4000 FOLLOW UP Follow Up: Follow-up with Dr. Berry on 03/10 as planned Follow-up with PCP in 1 week with CBC/BMP TIME SPENT Time Spent in Discharge (Minutes): 36 Discharge Plan Discharge Patient Disposition: Home, Self Care Condition: Stable Medically Cleared Date:: 02/26/25 Prescriptions: New tamsulosin 0.4 mg Capsule 0.4 mg PO BID Qty: 0 0RF Saccharomyces boulardii 250 mg Capsule 500 mg PO BIDWM 17 Days Qty: 68 0RF ciprofloxacin HCl [Cipro] 500 mg tablet 500 mg PO Q12H Qty: 10 0RF Rx Instructions: To start evening of 02/26 Continued sildenafil 100 mg tablet 100 mg PO DAILY PRN (Reason: sexual activity) omeprazole magnesium [Prilosec OTC] 20 mg tablet,delayed release (DR/EC) 20 mg PO DAILY PRN (Reason: indigestion) amlodipine 10 mg tablet 10 mg PO DAILY Patient Comments: TAKE 1 TABLET DAILY Discontinued amoxicillin-pot clavulanate 875-125 mg tablet 1 tab PO Q12H 14 Days Qty: 28 0RF Activity Restrictions: No Restrictions Diet: Regular Health Concerns: You were admitted with symptoms of sepsis thought to be related to urinary tract infection. You had a ureteral stent that was exchanged while you were here. You been treated with IV antibiotics during your hospitalization. You were diagnosed with a urinary tract infection and will need to complete a course of antibiotics. Please follow these instructions carefully. Urine was growing a bacteria called Pseudomonas. The following antibiotic plan is designed to treat your infection. After initial consultation with Dr. Berry, the intention was to treat you for 2 weeks. Given that we are sending you out on a medication that has higher risk, and your rapid improvement on antibiotics you received so far, I am limiting your course to a further 5 days. Your Medications * Ciprofloxacin (antibiotic): Take all doses even if you start feeling better. Do not stop early unless instructed by your doctor. Take with a full glass of water. Can be taken with or without food * Florastor: Take as directed on the package. This probiotic may help prevent diarrhea that sometimes occurs with antibiotics. Important Warnings About Ciprofloxacin Stop taking ciprofloxacin and call your doctor immediately if you experience: * Tendon pain, swelling, or difficulty moving (especially in ankles, shoulders, or hands) * Numbness, tingling, or burning pain in hands or feet * Severe dizziness or confusion * Irregular heartbeat * Severe diarrhea (may indicate C. difficile infection) What to Expect With Your Stent The ureteral stent is a small tube that helps urine drain from your kidney to your bladder. It is normal to experience some discomfort, including: * Frequent urination or feeling like you need to urinate urgently * Blood in your urine (pink or light red color) * Mild pain in your back, side, or lower abdomen * Discomfort when urinating These symptoms are common and should improve over time. When to Seek Medical Attention Call your doctor or go to the emergency room if you experience: * Fever over 101F (38.3C) or chills * Severe pain that is not controlled with [id number] pain medication * Heavy bleeding or large blood clots in your urine * Inability to urinate * Severe nausea or vomiting * Worsening symptoms despite taking antibiotics for 2-3 days Diarrhea Warning Antibiotics can sometimes cause diarrhea. Contact your doctor right away if you develop watery or bloody diarrhea, even if it occurs weeks after finishing the antibiotic, as this could be a sign of a serious intestinal infection. Often times people will describe this as being greater than 10 watery stools per day. Follow-Up Care * You will need to have your stent removed. Make sure you have a follow-up appointment scheduled. * I would advise scheduling a follow-up appointment with your primary care doctor in the next week to have your labs reviewed. It has been a pleasure taking care of you. I hope you continue to do well. Print Language: [place] Patient Instructions: Sulfamethoxazole Trimethoprim [id number]-[id number] tablets Follow-up Care: JESSE SCHREIBER MD [Primary Care Provider, Family Practice] Casey Berry MD [Provider Admit Priv/Credential, Urology] Vitals documented within 30 minutes of discharge?: Yes
[2025-02-26] MEDS: SULFAMETH/TRIMETH DS 800/160 MG TABLET PO SCH (08:06)
[2025-02-26] MEDS: POTASSIUM CHLORIDE 20 MEQ TABLET PO ONE (08:07)
[2025-02-26 09:52] VITALS: BP 151/89; TEMP 98.1; O2SAT 96
--- NOTE | 2025-02-26 18:12 | XRAY Report ---
INDICATIONS: STENT PLACEMENT TECHNIQUE: Interoperative fluoroscopic support COMPARISON: None. FINDINGS: Fluoroscopy for stent placement utilized. 0 seconds of fluoroscopic imaging time. IMPRESSION: Fluoroscopy for stent placement. Please see operative report for further details Reviewed by: Katty Levin MD on 02/26/2025 6:09 PM PST Approved by: Katty Levin MD on 02/26/2025 6:09 PM PST Station ID: [id number]
== END 2025-02-26 10:01 | disposition home or self-care (01) | DRG 854 ==
LOC: ED 07:26 → MS3 09:56 → MS2 02-25 21:51
PROVIDERS: ADMIT Student in an Organized Health Care Education/Training Program; ATTEND Student in an Organized Health Care Education/Training Program